=== PATIENT | female | born 1950 | race Caucasian/White ===

== ENCOUNTER 2016-06-14 18:24 | Inpatient (IN) | payer MEDICARE, OTHER ==
[~2016-06-14] VITALS: Ht 156.2 cm; Wt 88.2 kg
[~2016-06-14 18:24] MED LIST: AMLO5TAB4 PO; ATOR40TA PO; CALC-77 PO; CARV6.252 PO; CEPH-264 PO; CIPR500T94 PO; DARB100D SQ; DICL150D5 TP; FENO145T PO; FERR325T58 PO; FOLI1TAB16 PO; FURO80TA72 PO; GLIM4TAB PO; INSU100C4 SQ; INSU100I13 SQ; INSU100I17 SQ; LEVO112T2 PO; LEVO750T31 PO; LOSA50TA6 PO; METO2.5T5 PO; NOVOLOG SS; ONDA4TAB7 PO; ROPI1TAB PO; ROPI2TAB3 PO; SODI650T PO; TRIA15CR3 TP
[2016-06-14 19:55] LABS: BASO % 1 % (0-3); EOS % 4 % (0-3); HEMATOCRIT 35.2 % (36.0-47.0); HEMOGLOBIN 11.4 g/dL (12.0-15.5); LYMPH # 1.1 x10^3/uL (1.0-4.8); LYMPH % 36 % (24-48); MEAN CORPUSCULAR HEMOGLOBIN 29 pg (25-35); MEAN CORPUSCULAR HGB CONC 32 g/dL (31-37); MEAN CORPUSCULAR VOLUME 90 fL (79-100); MONO % 12 % (0-9); NEUT % 47 % (31-73); PLATELET COUNT 147 x10^3/uL (140-400); RED CELL DISTRIBUTION WIDTH 15.1 % (11.5-14.5); WHITE BLOOD COUNT 3.1 x10^3/uL (4.0-11.0)
[2016-06-14] MEDS ORDERED: methylPREDNISolone SOD SUCC PF 125 MG/2 ML VIAL. IV ONE (20:00)
[2016-06-14] MEDS ORDERED: IPRATRPIUM/ALBUTEROL 0.5/2.5MG 3 ML NEBU. NEB ONE (20:00)
[2016-06-14] MEDS ORDERED: hydrALAZINE 20 MG/ML VIAL. IVP ONE (20:00)
[2016-06-14] MEDS ORDERED: IV NORMAL SALINE 1000ML BAG 1,000 ML IV ONE (20:00)
[2016-06-14] MEDS ORDERED: ONDANSETRON PF 4 MG/2 ML VIAL. IV ONE (20:00)
[2016-06-14 20:11] LABS: CALCIUM 8.7 mg/dL (8.5-10.1); CREATININE 5.2 mg/dL (0.6-1.0); GFR 8.3; POTASSIUM 4.3 mmol/L (3.5-5.1)
[2016-06-14 20:17] LABS: ALBUMIN 3.1 g/dL (3.4-5.0); ALBUMIN/GLOBULIN RATIO 0.8 (1.0-1.7); TOTAL BILIRUBIN 0.4 mg/dL (0.2-1.0)
--- NOTE | 2016-06-14 22:07 | PHYS DOC ---
Past Medical History Past Medical History: COPD, Diabetes-Type II, High Cholesterol, Hypertension, Renal Failure Additional Past Medical Histor: hypoxia Past Surgical History: Other Additional Past Surgical Histo: dialysis shunt - left f.arm Alcohol Use: None Drug Use: None Adult General Chief Complaint Chief Complaint: NAUSEA/VOMITING/DIARRHA HPI HPI 66-year-old female with multiple medical problems including end-stage renal disease on dialysis presents stating she is been progressively short of breath over the last several days. She states she just felt terrible today and couldn' t make it to her dialysis treatment. She denies any fever chills or sweats. She states she is coughing and complains of orthopnea but she denies any hemoptysis or colored sputum. She does complain of some chest pain with her cough. [] Review of Systems Review of Systems Constitutional: Denies fever or chills [] Eyes: Denies change in visual acuity, redness, or eye pain [] HENT: Denies nasal congestion or sore throat [] Respiratory: Per history of present illness [] Cardiovascular: No additional information not addressed in HPI [] GI: Denies abdominal pain, nausea, vomiting, bloody stools or diarrhea [] : Denies dysuria or hematuria [] Musculoskeletal: Denies back pain or joint pain [] Integument: Denies rash or skin lesions [] Neurologic: Denies headache, focal weakness or sensory changes [] Endocrine: Denies polyuria or polydipsia [] Current Medications Current Medications Current Medications Medications (Trade) Dose Ordered Sig/Jordan Start Time Stop Time Status Last Admin Dose Admin Albuterol/ Ipratropium (Duoneb) 6 ml 1X ONCE 06/14/16 20:00 06/14/16 20:01 DC 06/14/16 19:58 6 ML Amlodipine Besylate (Norvasc) 10 mg DAILY 06/15/16 09:00 UNV Carvedilol (Coreg) 6.25 mg BID 06/15/16 09:00 UNV Furosemide (Lasix) 80 mg 1X ONCE 06/14/16 22:30 06/14/16 22:31 Hydralazine HCl (Apresoline) 10 mg 1X ONCE 06/14/16 20:00 06/14/16 20:01 DC 06/14/16 20:06 10 MG Methylprednisolone Sodium Succinate (Solu-Medrol 125mg Vial) 125 mg 1X ONCE 06/14/16 20:00 06/14/16 20:01 DC 06/14/16 20:06 125 MG Ondansetron HCl (Zofran) 4 mg PRN Q8HRS PRN 06/14/16 22:15 06/15/16 22:14 UNV Ondansetron HCl 4 mg 4 mg 1X ONCE 06/14/16 20:00 06/14/16 20:01 DC 06/14/16 20:05 4 MG Sodium Chloride (Iv Sodium Chloride 0.9% 1000ml Bag) 1,000 ml @ 1,000 mls/hr 1X ONCE 06/14/16 20:00 06/14/16 20:59 DC 06/14/16 20:05 1,000 MLS/HR Allergies Allergies Allergies Coded Allergies Type Severity Reaction Last Updated Verified No Known Drug Allergies 09/07/15 No Physical Exam Physical Exam Constitutional: Well developed, well nourished, no acute distress, non-toxic appearance. [] HENT: Normocephalic, atraumatic, bilateral external ears normal, oropharynx moist, no oral exudates, nose normal. [] Eyes: PERRLA, EOMI, conjunctiva normal, no discharge. [] Neck: Normal range of motion, no tenderness, supple, no stridor. [] Cardiovascular:Heart rate regular rhythm, no murmur [] Lungs & Thorax: Bilateral breath sounds clear to auscultation [] Abdomen: Bowel sounds normal, soft, no tenderness, no masses, no pulsatile masses. [] Skin: Warm, dry, no erythema, no rash. [] Back: No tenderness, no CVA tenderness. [] Extremities: No tenderness, no cyanosis, no clubbing, ROM intact, no edema. [] Neurologic: Alert and oriented X 3, normal motor function, normal sensory function, no focal deficits noted. [] Psychologic: Affect normal, judgement normal, mood normal. [] Current Patient Data Vital Signs Vital Signs Date Time Temp Pulse Resp B/P Pulse Ox O2 Delivery O2 Flow Rate FiO2 06/14/16 20:13 Nasal Cannula 3.0 06/14/16 20:12 84 18 201/88 96 06/14/16 19:20 98.5 98.5 Lab Values Laboratory Tests Test 1/24/17 19:15 White Blood Count 3.1x10^3/uL (4.0-11.0) L Red Blood Count 3.90x10^6/uL (3.50-5.40) Hemoglobin 11.4g/dL (12.0-15.5) L Hematocrit 35.2% (36.0-47.0) L Mean Corpuscular Volume 90fL (79-100) Mean Corpuscular Hemoglobin 29pg (25-35) Mean Corpuscular Hemoglobin Concent 32g/dL (31-37) Red Cell Distribution Width 15.1% (11.5-14.5) H Platelet Count 147x10^3/uL (140-400) Neutrophils (%) (Auto) 47% (31-73) Lymphocytes (%) (Auto) 36% (24-48) Monocytes (%) (Auto) 12% (0-9) H Eosinophils (%) (Auto) 4% (0-3) H Basophils (%) (Auto) 1% (0-3) Neutrophils # (Auto) 1.5x10^3uL (1.8-7.7) L Lymphocytes # (Auto) 1.1x10^3/uL (1.0-4.8) Monocytes # (Auto) 0.4x10^3/uL (0.0-1.1) Eosinophils # (Auto) 0.1x10^3/uL (0.0-0.7) Basophils # (Auto) 0.0x10^3/uL (0.0-0.2) Sodium Level 139mmol/L (136-145) Potassium Level 4.3mmol/L (3.5-5.1) Chloride Level 101mmol/L (98-107) Carbon Dioxide Level 29mmol/L (21-32) Anion Gap 9 (6-14) Blood Urea Nitrogen 43mg/dL (7-20) H Creatinine 5.2mg/dL (0.6-1.0) H Estimated GFR (Cockcroft-Gault) 8.3 BUN/Creatinine Ratio 8 (6-20) Glucose Level 146mg/dL (70-99) H Calcium Level 8.7mg/dL (8.5-10.1) Total Bilirubin 0.4mg/dL (0.2-1.0) Aspartate Amino Transferase (AST) 23U/L (15-37) Alanine Aminotransferase (ALT) 26U/L (14-59) Alkaline Phosphatase 48U/L (46-116) Troponin I Quantitative 0.047ng/mL (0.000-0.055) AZ-Ety-Q-Type Natriuretic Peptide 90934tx/mL (0-124) H Total Protein 7.0g/dL (6.4-8.2) Albumin 3.1g/dL (3.4-5.0) L Albumin/Globulin Ratio 0.8 (1.0-1.7) L Laboratory Tests 06/14/16 19:15 Laboratory Tests 06/14/16 19:15 EKG EKG [EKG: Normal sinus rhythm rate of [address]-T changes] Radiology/Procedures Radiology/Procedures [] Impressions: Chest x-ray: Cardiomegaly and vascular congestion consistent with congestive heart failure as interpreted by me Course & Med Decision Making Course & Med Decision Making Pertinent Labs and Imaging studies reviewed. (See chart for details) [ED course: Evaluation reveals 66-year-old female on dialysis who short of breath. Her chest x-ray is consistent with congestive heart failure she was given 80 mg of Lasix during her stay in the department however her oxygen saturation was in the 70s and less she was on a Ventimask. After placement of the Ventimask she had an O2 saturation of 95%. I spoke with our pit crew support worker who is going to have a dialysis nurse come in and dialyze the patient this evening. CRITICAL CARE time was 30 minutes - time exclusive of any procedures performed. Care included medical management, x-ray/lab interpretation, discussions with the patient and their family as well as appropriate medical consultants.] Dragon Disclaimer Dragon Disclaimer This electronic medical record was generated, in whole or in part, using a voice recognition dictation system. Departure Departure Impression: Primary Impression: Congestive heart failure Additional Impression: Fluid overload Disposition: 09 ADMITTED INPATIENT Condition: GUARDED Referrals: NO PCP (PCP) Problem Qualifiers Primary Impression: Congestive heart failure Congestive heart failure type: unspecified congestive heart failure type Congestive heart failure chronicity: unspecified congestive heart failure chronicity Qualified Code: I50.9 - Heart failure, unspecified Additional Impression: Fluid overload Hypervolemia type: unspecified Qualified Code: E87.70 - Fluid overload, unspecified CLARE LOZA DO Jun 14, 2016 22:08
[2016-06-14] MEDS ORDERED: ONDANSETRON PF 4 MG/2 ML VIAL. IV PRN (22:15)
[2016-06-14] MEDS: AMLODIPINE BESYLATE 5 MG TABLET PO SCH (22:30)
[2016-06-14] MEDS ORDERED: FUROSEMIDE 40 MG/4 ML VIAL IVP ONE (22:30)
[2016-06-14] MEDS: CARVEDILOL 6.25 MG TABLET PO SCH (22:37)
--- NOTE | 2016-06-14 22:53 | ACF ---
Admission Forms Criteria HEART FAILURE Clinical Indications for Admission to Inpatient Care (Place 'X' for any and all applicable criteria): Admission is indicated by ANY ONE of the following(1)(2)(3)(4): [ ]I. Severe electrolyte abnormalities requiring inpatient care(9) [ ]II. Hemodynamic instability [ ]III. Anasarca [ ]IV. Acute cardiac ischemia causing or associated with failure (Also use Angina or Myocardial Infarction as appropriate) [ ]V. Cardiac arrhythmias of immediate concern [ ]. Precipitating cause for acute decompensation (eg, pneumonia, pulmonary embolism) requires inpatient care [ ]VII. Pulmonary edema that is very severe (eg, mechanical ventilation needed, imminent or likely, need for 100% oxygen to keep oxygen saturation above 90%) [ ]VIII. Inpatient admission required rather than observation care (Also use Heart Failure: Observation Care as appropriate) because of ANY ONE of the following: [ ]a) Pulmonary edema that is severe or worsening as indicated by ALL of the following: [ ]i) New need for oxygen therapy to keep oxygen saturation above 90% (or increased FiO2 need from baseline) [ ]ii) Has not improved sufficiently with emergency department or observation care IV diuretics or other heart failure treatments[C] [ ]b) Cognitive impairment that is severe or persistent [ ]c) Increased creatinine (new on laboratory test) with reduction of more than 50% in estimated glomerular filtration rate from baseline. [ ]d) Acute renal insufficiency (progressively (ongoing) rising creatinine (known from past laboratory test) with reduction of more than 25% in estimated glomerular filtration rate from baseline) [ ]e) Acute peripheral ischemia (eg, pulseless, cool, mottled, or cyanotic extremity) [ ]f) Acute renal failure [ ]g) Supplemental O2 or respiratory treatment for >24 hr that are performable only in acute inpatient setting [ ]h) Pulmonary artery catheter monitoring [ ]i) Other condition, treatment or monitoring requiring inpatient admission [X]IX. Contraindications and/or Inappropriate clinical situations for Observational Care in patients with Heart Failure, when ANY ONE of the following is required: [ ]a) Patient with High risk of cardiac embolism (e.g, patients with previous cardiac embolism, LVEF < 40%, age >75 and patients with prosthetic valve) 18 [ ]b) Patient with Moderate risk including DM patient, CAD and patient aged 65-75 [ ]c) Patient with any change in cardiac biomarker especially troponin should be managed as high risk in an inpatient setting 19 [ ]d) Physician judgement irrespective of ECG and other diagnostic findings 20 [ ]e) Patients with hyponatremia have high risk for mortality and require more extensive care and length of stay 21 [X]f) Need for large volume diuresis 21 [ ]g) Presence of renal insufficiency or hypotension limiting speed of diuresis 21 [ ]h) Acute cardiac Ischemia in the elderly 21 [ ]i) Patients with a 30 day risk of mortality based on a multidimensional prognostic index (MPI) [J,]21 [ ]X. General contraindications and/or Inappropriate clinical situations for Observational Care in patients with Heart Failure, when ANY ONE of the following is required: [ ]a) Prediction of prolongation of LOS based on ANY ONE of the following may be considered as a contraindication for observational care 2, 3, 4, 5, 6, 7, 8 , 9, 10, 11 [ ]i) Age > 65 yrs. [ ]ii) Patient arriving by ambulance [ ]iii) Patient with high acuity [ ]iv) Patient requiring vital sign monitoring [ ]v) Patient on IV medication [ ]b) Systolic blood pressures 180mmHg 3,12 [ ]c) Patient with altered mental status including delirium and other alteration of consciousness, (3) [ ]d) Patient whose discharge disposition will be to a group home home or rehabilitation home should not be managed in Emergency Department Observation Unit. CMS rule requires 3 days hospital stay before such placement.3,13 [ ]e) Patient with failure to thrive due to broad array of etiologies 3,16,17 [ ]f) Inability to ambulate 3,14 Extended stay beyond goal length of stay may be needed for(1)(3)(21)(25): [ ]a) Cardiac ischemia, confirmed or suspected as precipitant [ ]b) Cardiogenic shock or refractory pulmonary edema [ ]c) Acute kidney injury or renal failure [ ]d) Respiratory failure (eg, need for noninvasive or invasive mechanical ventilation) (23) [ ]e) Concomitant pneumonia or significant electrolyte abnormality (eg, severe hyponatremia) [ ]f) Newly diagnosed (new onset) atrial fibrillation [ ]g) Stage IV chronic kidney disease (estimated glomerular filtration rate of less than 30 mL/min/1.73m2 (0.50 mL/sec/1.73m2), and not previously on chronic dialysis The original [facility] content created by [facility] has been revised. The portions of the content which have been revised are identified through the use of italic text or in bold, and [facility] has neither reviewed nor approved the modified material. All other unmodified content is copyright [facility]. Please see references footnoted in the original [facility] edition 2016 Admission Criteria Met?: Yes BAO LEE. Jun 14, 2016 22:53
[2016-06-14 23:16] VITALS: BP 174/79
[2016-06-15 02:10] VITALS: BP 158/72
[2016-06-15 04:02] LABS: BASO % 1 % (0-3); EOS % 0 % (0-3); HEMATOCRIT 33.9 % (36.0-47.0); HEMOGLOBIN 11.2 g/dL (12.0-15.5); LYMPH # 0.3 x10^3/uL (1.0-4.8); LYMPH % 19 % (24-48); MEAN CORPUSCULAR HEMOGLOBIN 30 pg (25-35); MEAN CORPUSCULAR HGB CONC 33 g/dL (31-37); MEAN CORPUSCULAR VOLUME 89 fL (79-100); MONO % 4 % (0-9); NEUT % 77 % (31-73); PLATELET COUNT 120 x10^3/uL (140-400); RED BLOOD COUNT 3.79 x10^6/uL (3.50-5.40); RED CELL DISTRIBUTION WIDTH 15.4 % (11.5-14.5)
[2016-06-15 04:10] LABS: WHITE BLOOD COUNT 1.5 x10^3/uL (4.0-11.0)
[2016-06-15 04:14] LABS: CALCIUM 8.3 mg/dL (8.5-10.1); CREATININE 3.4 mg/dL (0.6-1.0); GFR 13.5; POTASSIUM 4.3 mmol/L (3.5-5.1)
[2016-06-15 06:34] LABS: PLT ESTIMATE ADEQUATE (ADEQUATE)
--- NOTE | 2016-06-15 06:52 | EKG ---
[facility] [address] [place] [id number] Test Date: 2016-06-14 Test Time: 19:15:31 Pat Name: TJ HOOKS Department: Room: 208 1 Gender: F Control Specialist: : [id number] Requested By: CLARE LOZA Order Number: [id number] Reading MD: Hansel Sanchez Measurements Intervals [place]is Rate: 83 P: 90 DC: 154 QRS: 82 QRSD: 88 T: 3 QT: 348 QTc: 409 Interpretive Statements SINUS RHYTHM T ABNORMALITY IN INFERIOR LEADS ABNORMAL ECG Electronically Signed On 06-15-2016 15:11:54 CYTOGENETICIST by Hansel Sanchez
[2016-06-15 07:46] VITALS: BP 168/78
--- NOTE | 2016-06-15 08:36 | RAD ---
Indication: Shortness of air for one week. Time of exam 2034 hours. Comparison is made with prior study 09/25/2015. The heart is enlarged but stable. Linear atelectasis right upper lobe is unchanged. Congestive changes have developed since prior exam. No effusion is seen. There is no pneumothorax. Impression: Development of mild congestive changes when compared with exam from 09/25/2015.
[2016-06-15] MEDS ORDERED: DEXTROSE 50% 25 GM / 50ML DISP.SYRIN. IV PRN (09:15)
[2016-06-15] MEDS: CARVEDILOL 6.25 MG TABLET PO SCH ×2 (09:39→18:27)
[2016-06-15] MEDS: AMLODIPINE BESYLATE 5 MG TABLET PO SCH (09:39)
--- NOTE | 2016-06-15 09:40 | PDOC1 ---
History and Physical Date of Admission Date of Admission DATE: 06/15/16 TIME: 09:34 Identification/Chief Complaint Chief Complaint short of breath History of Present Illness History of Present Illness Ms. Diego, is a 66-year-old female with multiple medical problems, admitted overnight for dyspnea, weakness. Her dyspnea had worsened over days, she had only missed her last HD because she felt poorly Ran 2 hours on HD last night, and feels much better today. She states she just felt terrible yesterday and couldn't make it to her dialysis treatment. THis AM she feels more like her normal self, would like to run HD again today if possible + coughing, + orthopnea, no chest pain Past Medical History Past Medical History end-stage renal disease on dialysis Cardiovascular: CHF, HTN, Hyperlipidemia Pulmonary: Asthma, COPD, Other CENTRAL NERVOUS SYSTEM: Other GI: No pertinent hx Heme/Onc: No pertinent hx Psych: Depression Musculoskeletal: Other Rheumatologic: No pertinent hx Infectious disease: No pertinent hx Renal/: Acute renal failure Endocrine: Diabetes, Hypothyroidism, Other Past Surgical History Past Surgical History: Cholecystectomy, Cataract Removal, Tonsillectomy Family History Family History: No Significant, Diabetes, Family History Unknown Social History Smoke: No ALCOHOL: none Drugs: None Current Problem List Problem List Problems Medical Problems: (1) CHF (congestive heart failure) Status: Acute (2) Congestive heart failure Status: Acute (3) Fluid overload Status: Acute Problems: Current Medications Current Medications Current Medications Albuterol/ Ipratropium (Duoneb) 6 ml 1X ONCE NEB Last administered on 19:58; Start 06/14/16 at 20:00; Stop 06/14/16 at 20:01; Status DC Methylprednisolone Sodium Succinate (Solu-Medrol 125mg Vial) 125 mg 1X ONCE IV Last administered on 06/14/16 20:06; Start 06/14/16 at 20:00; Stop 06/14/16 at 20:01; Status DC Ondansetron HCl 4 mg 4 mg 1X ONCE IV Last administered on 06/14/16 20:05; Start 06/14/16 at 20:00; Stop 06/14/16 at 20:01; Status DC Sodium Chloride (Iv Sodium Chloride 0.9% 1000ml Bag) 1,000 ml @ 1,000 mls/hr 1X ONCE IV Last administered on 06/14/16 20:05; Start 06/14/16 at 20:00; Stop 06/14/16 at 20:59; Status DC Hydralazine HCl (Apresoline) 10 mg 1X ONCE IVP Last administered on 06/14/16 20:06; Start 06/14/16 at 20:00; Stop 06/14/16 at 20:01; Status DC Furosemide (Lasix) 80 mg 1X ONCE IVP Last administered on 06/14/16 22:31; Start 06/14/16 at 22:30; Stop 06/14/16 at 22:31; Status DC Ondansetron HCl (Zofran) 4 mg PRN Q8HRS PRN IV NAUSEA/VOMITING; Start 06/14/16 at 22:15; Stop 06/15/16 at 22:14 Amlodipine Besylate (Norvasc) 10 mg DAILY PO ; Start 06/14/16 at 22:30 Carvedilol (Coreg) 6.25 mg BIDWMEALS PO Last administered on 06/14/16 22:37; Start 06/14/16 at 22:30 Insulin Aspart (Novolog) 0-7 UNITS TIDWMEALS SQ ; Start 06/15/16 at 12:00; Stop 06/15/16 at 12:00; Status DC Dextrose 12.5 gm PRN Q15MIN PRN IV SEE COMMENTS; Start 06/15/16 at 09:15 Insulin Aspart (Novolog) 0-7 UNITS QID SQ ; Start 06/15/16 at 13:00 Active Scripts Active Reported Norvasc (Amlodipine Besylate) 5 Mg Tablet 10 Mg PO DAILY Allergies Allergies: Coded Allergies: No Known Drug Allergies (Unverified , 09/07/15) ROS General: YES: Fatigue, Malaise, No: Appetite, Chills, Night Sweats, Other PSYCHOLOGICAL ROS: No: Anxiety, Behavioral Disorder, Concentration difficultie , Decreased libido, Depression, Disorientation, Hallucinations, Hostility, Irritablity, Memory difficulties, Mood Swings, Obsessive thoughts, Other, Physical abuse, Sexual abuse, Sleep disturbances, Suicidal ideation Eyes: No Blurry vision, No Decreased vision, No Double vision, No Dry eyes, No Excessive tearing, No Eye Pain, No Itchy Eyes, No Loss of vision, No Other, No Photophobia, No Scotomata, No Uses contacts, No Uses glasses HEENT: No: Epistaxis, Heacaches, Hearing change, Nasal congestion, Nasal discharge, Oral lesions, Other, Sinus pain, Sneezing, Snoring, Sore Throat, Tinnitus, Vertigo, Visual Changes, Vocal changes Respiratory: YES: Cough, Orthopnea, SOB with excertion, No: Hemoptysis, Other, Pleuritic Pain, Shortness of breath, Sputum Changes, Stridor, Tachypnea, Wheezing Cardiovascular: No Chest Pain, No Edema, No Lt Headedness, No Orthopnea, No Other, No Palpitations, No Paroxysmal Noc. Dyspnea Gastrointestinal: No Abdominal Pain, No Constipation, No Diarrhea, No Hematochezia, No Melena, No Nausea, No Other, No Vomiting Genitourinary: No , No , No , No , No , No , No , No Discharge, No Dysuria, No Flank Pain, No Frequency, No Hematuria, No Incontinence, No Other, No Pain, No Retention, No Urgency Musculoskeletal: Yes Gait Disturbance, Yes Joint Pain, Yes Joint Stiffness, No Joint Swelling, No Muscle Pain, No Muscular Weakness, No Other, No Pain In :, No Swelling In: Neurological: No Behavorial Changes, No Bowel/Bladder ControlChng, No Confusion , No Dizziness, No Gait Disturbance, No Headaches, No Impaired Coord/balance, No Memory Loss, No Numbness/Tingling, No Other, No Seizures, No Speech Problems , No Tremors, No Visual Changes, No Weakness Skin: No Acne, No Dry Skin, No Eczema, No Hair Changes, No Lumps, No Mole Changes, No Mottling, No Nail Changes, No Other, No Pruritus, No Rash, No Skin Lesion Changes Physical Exam General: Alert, Oriented X3, Cooperative, No acute distress HEENT: Atraumatic, PERRLA Lungs: Clear to auscultation, Normal air movement Heart: S1S2, murmurs Abdomen: Normal bowel sounds, Soft Extremities: No cyanosis Skin: No breakdown Neuro: Normal gait, Normal speech Psych/Mental Status: Mental status NL Vitals Vitals Vital Signs Date Time Temp Pulse Resp B/P Pulse Ox O2 Delivery O2 Flow Rate FiO2 06/15/16 08:03 Nasal Cannula 2.0 06/15/16 07:46 97.9 76 20 168/78 93 97.9 Labs Labs Laboratory Tests Test 1/24/17 19:15 06/15/16 03:32 06/15/16 08:05 White Blood Count 3.1x10^3/uL (4.0-11.0) 1.5x10^3/uL (4.0-11.0) Red Blood Count 3.90x10^6/uL (3.50-5.40) 3.79x10^6/uL (3.50-5.40) Hemoglobin 11.4g/dL (12.0-15.5) 11.2g/dL (12.0-15.5) Hematocrit 35.2% (36.0-47.0) 33.9% (36.0-47.0) Mean Corpuscular Volume 90fL (79-100) 89fL (79-100) Mean Corpuscular Hemoglobin 29pg (25-35) 30pg (25-35) Mean Corpuscular Hemoglobin Concent 32g/dL (31-37) 33g/dL (31-37) Red Cell Distribution Width 15.1% (11.5-14.5) 15.4% (11.5-14.5) Platelet Count 147x10^3/uL (140-400) 120x10^3/uL (140-400) Neutrophils (%) (Auto) 47% (31-73) 77% (31-73) Lymphocytes (%) (Auto) 36% (24-48) 19% (24-48) Monocytes (%) (Auto) 12% (0-9) 4% (0-9) Eosinophils (%) (Auto) 4% (0-3) 0% (0-3) Basophils (%) (Auto) 1% (0-3) 1% (0-3) Neutrophils # (Auto) 1.5x10^3uL (1.8-7.7) 1.2x10^3uL (1.8-7.7) Lymphocytes # (Auto) 1.1x10^3/uL (1.0-4.8) 0.3x10^3/uL (1.0-4.8) Monocytes # (Auto) 0.4x10^3/uL (0.0-1.1) 0.1x10^3/uL (0.0-1.1) Eosinophils # (Auto) 0.1x10^3/uL (0.0-0.7) 0.0x10^3/uL (0.0-0.7) Basophils # (Auto) 0.0x10^3/uL (0.0-0.2) 0.0x10^3/uL (0.0-0.2) Sodium Level 139mmol/L (136-145) 139mmol/L (136-145) Potassium Level 4.3mmol/L (3.5-5.1) 4.3mmol/L (3.5-5.1) Chloride Level 101mmol/L (98-107) 102mmol/L (98-107) Carbon Dioxide Level 29mmol/L (21-32) 27mmol/L (21-32) Anion Gap 9 (6-14) 10 (6-14) Blood Urea Nitrogen 43mg/dL (7-20) 26mg/dL (7-20) Creatinine 5.2mg/dL (0.6-1.0) 3.4mg/dL (0.6-1.0) Estimated GFR (Cockcroft-Gault) 8.3 13.5 BUN/Creatinine Ratio 8 (6-20) Glucose Level 146mg/dL (70-99) 232mg/dL (70-99) Calcium Level 8.7mg/dL (8.5-10.1) 8.3mg/dL (8.5-10.1) Total Bilirubin 0.4mg/dL (0.2-1.0) Aspartate Amino Transf (AST/SGOT) 23U/L (15-37) Alanine Aminotransferase (ALT/SGPT) 26U/L (14-59) Alkaline Phosphatase 48U/L (46-116) Troponin I Quantitative 0.047ng/mL (0.000-0.055) UI-Qfl-R-Type Natriuretic Peptide 94360jk/mL (0-124) Total Protein 7.0g/dL (6.4-8.2) Albumin 3.1g/dL (3.4-5.0) Albumin/Globulin Ratio 0.8 (1.0-1.7) Segmented Neutrophils % 80% (35-66) Band Neutrophils % 4% (0-9) Lymphocytes % 14% (24-48) Monocytes % 2% (0-10) Platelet Estimate Adequate (ADEQUATE) Glucose (Fingerstick) 275mg/dL (70-99) Laboratory Tests Test 06/14/16 19:15 06/15/16 03:32 06/15/16 08:05 White Blood Count 3.1x10^3/uL (4.0-11.0) 1.5x10^3/uL (4.0-11.0) Red Blood Count 3.90x10^6/uL (3.50-5.40) 3.79x10^6/uL (3.50-5.40) Hemoglobin 11.4g/dL (12.0-15.5) 11.2g/dL (12.0-15.5) Hematocrit 35.2% (36.0-47.0) 33.9% (36.0-47.0) Mean Corpuscular Volume 90fL (79-100) 89fL (79-100) Mean Corpuscular Hemoglobin 29pg (25-35) 30pg (25-35) Mean Corpuscular Hemoglobin Concent 32g/dL (31-37) 33g/dL (31-37) Red Cell Distribution Width 15.1% (11.5-14.5) 15.4% (11.5-14.5) Platelet Count 147x10^3/uL (140-400) 120x10^3/uL (140-400) Neutrophils (%) (Auto) 47% (31-73) 77% (31-73) Lymphocytes (%) (Auto) 36% (24-48) 19% (24-48) Monocytes (%) (Auto) 12% (0-9) 4% (0-9) Eosinophils (%) (Auto) 4% (0-3) 0% (0-3) Basophils (%) (Auto) 1% (0-3) 1% (0-3) Neutrophils # (Auto) 1.5x10^3uL (1.8-7.7) 1.2x10^3uL (1.8-7.7) Lymphocytes # (Auto) 1.1x10^3/uL (1.0-4.8) 0.3x10^3/uL (1.0-4.8) Monocytes # (Auto) 0.4x10^3/uL (0.0-1.1) 0.1x10^3/uL (0.0-1.1) Eosinophils # (Auto) 0.1x10^3/uL (0.0-0.7) 0.0x10^3/uL (0.0-0.7) Basophils # (Auto) 0.0x10^3/uL (0.0-0.2) 0.0x10^3/uL (0.0-0.2) Sodium Level 139mmol/L (136-145) 139mmol/L (136-145) Potassium Level 4.3mmol/L (3.5-5.1) 4.3mmol/L (3.5-5.1) Chloride Level 101mmol/L (98-107) 102mmol/L (98-107) Carbon Dioxide Level 29mmol/L (21-32) 27mmol/L (21-32) Anion Gap 9 (6-14) 10 (6-14) Blood Urea Nitrogen 43mg/dL (7-20) 26mg/dL (7-20) Creatinine 5.2mg/dL (0.6-1.0) 3.4mg/dL (0.6-1.0) Estimated GFR (Cockcroft-Gault) 8.3 13.5 BUN/Creatinine Ratio 8 (6-20) Glucose Level 146mg/dL (70-99) 232mg/dL (70-99) Calcium Level 8.7mg/dL (8.5-10.1) 8.3mg/dL (8.5-10.1) Total Bilirubin 0.4mg/dL (0.2-1.0) Aspartate Amino Transf (AST/SGOT) 23U/L (15-37) Alanine Aminotransferase (ALT/SGPT) 26U/L (14-59) Alkaline Phosphatase 48U/L (46-116) Troponin I Quantitative 0.047ng/mL (0.000-0.055) EJ-Lof-Q-Type Natriuretic Peptide 89220ay/mL (0-124) Total Protein 7.0g/dL (6.4-8.2) Albumin 3.1g/dL (3.4-5.0) Albumin/Globulin Ratio 0.8 (1.0-1.7) Segmented Neutrophils % 80% (35-66) Band Neutrophils % 4% (0-9) Lymphocytes % 14% (24-48) Monocytes % 2% (0-10) Platelet Estimate Adequate (ADEQUATE) Glucose (Fingerstick) 275mg/dL (70-99) VTE Prophylaxis Ordered VTE Prophylaxis Devices: Yes VTE Pharmacological Prophylaxi: Yes Assessment/Plan Assessment/Plan ESRD, on HD, fluid overload, causing acute diastolic CHF Htn DM2, poor control, she stopped taking med chronic hypoxic lung failure Neurotropenia, she reports chronic, has seen Dr. Falcon previously noncompliance, has stopped seeing Dr. Burr, had a disagreement with database support obesity, BMI 36 uses a walker at baseline CORAZON LIRIANO MD Jun 15, 2016 09:39
--- NOTE | 2016-06-15 10:37 | PDOC2 ---
CONSULT Date of Consult Date of Consult DATE: 06/15/16 TIME: 10:33 Reason for Consult Reason for Consult: ESRD Referring Physician Referring Physician: ANNITA Identification/Chief Complaint Chief Complaint SOB Source Source: Chart review, Patient History of Present Illness Reason for Visit: THIS IS A 66 YR OLD ADMITTED WITH SOB AND CHF. SHE HAS ESRD AND IS ON HD ON TTS. SHE MISSED HER TX YESTERDAY AND PRESENTED TO THE ER LAST NIGHT AND SHE WAS HYPOXIC NEEDING SUPPLEMENTAL O2. LABS ARE C/W ESRD. SHE IS ALSO NOTED TO HAVE NEUTROPENIA. STATES SHE HAS HAD SOME PROGRESSIVE SOB SINCE MONDAY Past Medical History Cardiovascular: CHF, HTN, Hyperlipidemia Pulmonary: Asthma, COPD, Other CENTRAL NERVOUS SYSTEM: Other GI: No pertinent hx Heme/Onc: No pertinent hx Psych: Depression Musculoskeletal: Other Rheumatologic: No pertinent hx Infectious disease: No pertinent hx Renal/: Acute renal failure Endocrine: Diabetes, Hypothyroidism, Other Past Surgical History Past Surgical History: Cholecystectomy, Cataract Removal, Tonsillectomy Family History Family History: No Significant, Diabetes, Family History Unknown Social History No ALCOHOL: none Drugs: None Lives: with Family Current Problem List Problem List Problems Medical Problems: (1) CHF (congestive heart failure) Status: Acute (2) Congestive heart failure Status: Acute (3) Fluid overload Status: Acute Current Medications Current Medications Current Medications Albuterol/ Ipratropium (Duoneb) 6 ml 1X ONCE NEB Last administered on 19:58; Start 06/14/16 at 20:00; Stop 06/14/16 at 20:01; Status DC Methylprednisolone Sodium Succinate (Solu-Medrol 125mg Vial) 125 mg 1X ONCE IV Last administered on 06/14/16 20:06; Start 06/14/16 at 20:00; Stop 06/14/16 at 20:01; Status DC Ondansetron HCl 4 mg 4 mg 1X ONCE IV Last administered on 06/14/16 20:05; Start 06/14/16 at 20:00; Stop 06/14/16 at 20:01; Status DC Sodium Chloride (Iv Sodium Chloride 0.9% 1000ml Bag) 1,000 ml @ 1,000 mls/hr 1X ONCE IV Last administered on 06/14/16 20:05; Start 06/14/16 at 20:00; Stop 06/14/16 at 20:59; Status DC Hydralazine HCl (Apresoline) 10 mg 1X ONCE IVP Last administered on 06/14/16 20:06; Start 06/14/16 at 20:00; Stop 06/14/16 at 20:01; Status DC Furosemide (Lasix) 80 mg 1X ONCE IVP Last administered on 06/14/16 22:31; Start 06/14/16 at 22:30; Stop 06/14/16 at 22:31; Status DC Ondansetron HCl (Zofran) 4 mg PRN Q8HRS PRN IV NAUSEA/VOMITING; Start 06/14/16 at 22:15; Stop 06/15/16 at 22:14 Amlodipine Besylate (Norvasc) 10 mg DAILY PO Last administered on 06/15/16 09: 39; Start 06/14/16 at 22:30 Carvedilol (Coreg) 6.25 mg BIDWMEALS PO Last administered on 06/15/16 09:39; Start 06/14/16 at 22:30 Insulin Aspart (Novolog) 0-7 UNITS TIDWMEALS SQ ; Start 06/15/16 at 12:00; Stop 06/15/16 at 12:00; Status DC Dextrose 12.5 gm PRN Q15MIN PRN IV SEE COMMENTS; Start 06/15/16 at 09:15 Insulin Aspart (Novolog) 0-7 UNITS QID SQ ; Start 06/15/16 at 13:00 Active Scripts Active Reported Norvasc (Amlodipine Besylate) 5 Mg Tablet 10 Mg PO DAILY Allergies Allergies: Coded Allergies: No Known Drug Allergies (Unverified , 09/07/15) ROS General: YES: Appetite, Fatigue, Malaise PSYCHOLOGICAL ROS: YES: Anxiety Eyes: Yes Decreased vision HEENT: YES: Heacaches Respiratory: YES: Cough, Orthopnea, Shortness of breath Cardiovascular: yes Orthopnea Gastrointestinal: Yes Constipation Genitourinary: YES Other (OLIGURIA) Musculoskeletal: Yes Muscular Weakness Neurological: Yes Weakness Skin: Yes Dry Skin Physical Exam General: Alert, Oriented X3, Cooperative, No acute distress HEENT: Atraumatic, PERRLA Lungs: Other (BASILAR RALES) Heart: Regular rate, Normal S1 Abdomen: Normal bowel sounds, Soft, No tenderness Extremities: No clubbing Skin: No rashes Neuro: Normal speech, Cranial nerves 3-12 NL Psych/Mental Status: Mental status NL, Mood NL MUSCULOSKELETAL: No deformity, No swelling Vitals VITALS Vital Signs Date Time Temp Pulse Resp B/P Pulse Ox O2 Delivery O2 Flow Rate FiO2 06/15/16 09:39 76 168/78 06/15/16 08:03 Nasal Cannula 2.0 06/15/16 07:46 97.9 20 93 97.9 Labs Labs Laboratory Tests Test 06/14/16 19:15 06/15/16 03:32 06/15/16 08:05 White Blood Count 3.1x10^3/uL (4.0-11.0) 1.5x10^3/uL (4.0-11.0) Red Blood Count 3.90x10^6/uL (3.50-5.40) 3.79x10^6/uL (3.50-5.40) Hemoglobin 11.4g/dL (12.0-15.5) 11.2g/dL (12.0-15.5) Hematocrit 35.2% (36.0-47.0) 33.9% (36.0-47.0) Mean Corpuscular Volume 90fL (79-100) 89fL (79-100) Mean Corpuscular Hemoglobin 29pg (25-35) 30pg (25-35) Mean Corpuscular Hemoglobin Concent 32g/dL (31-37) 33g/dL (31-37) Red Cell Distribution Width 15.1% (11.5-14.5) 15.4% (11.5-14.5) Platelet Count 147x10^3/uL (140-400) 120x10^3/uL (140-400) Neutrophils (%) (Auto) 47% (31-73) 77% (31-73) Lymphocytes (%) (Auto) 36% (24-48) 19% (24-48) Monocytes (%) (Auto) 12% (0-9) 4% (0-9) Eosinophils (%) (Auto) 4% (0-3) 0% (0-3) Basophils (%) (Auto) 1% (0-3) 1% (0-3) Neutrophils # (Auto) 1.5x10^3uL (1.8-7.7) 1.2x10^3uL (1.8-7.7) Lymphocytes # (Auto) 1.1x10^3/uL (1.0-4.8) 0.3x10^3/uL (1.0-4.8) Monocytes # (Auto) 0.4x10^3/uL (0.0-1.1) 0.1x10^3/uL (0.0-1.1) Eosinophils # (Auto) 0.1x10^3/uL (0.0-0.7) 0.0x10^3/uL (0.0-0.7) Basophils # (Auto) 0.0x10^3/uL (0.0-0.2) 0.0x10^3/uL (0.0-0.2) Sodium Level 139mmol/L (136-145) 139mmol/L (136-145) Potassium Level 4.3mmol/L (3.5-5.1) 4.3mmol/L (3.5-5.1) Chloride Level 101mmol/L (98-107) 102mmol/L (98-107) Carbon Dioxide Level 29mmol/L (21-32) 27mmol/L (21-32) Anion Gap 9 (6-14) 10 (6-14) Blood Urea Nitrogen 43mg/dL (7-20) 26mg/dL (7-20) Creatinine 5.2mg/dL (0.6-1.0) 3.4mg/dL (0.6-1.0) Estimated GFR (Cockcroft-Gault) 8.3 13.5 BUN/Creatinine Ratio 8 (6-20) Glucose Level 146mg/dL (70-99) 232mg/dL (70-99) Calcium Level 8.7mg/dL (8.5-10.1) 8.3mg/dL (8.5-10.1) Total Bilirubin 0.4mg/dL (0.2-1.0) Aspartate Amino Transf (AST/SGOT) 23U/L (15-37) Alanine Aminotransferase (ALT/SGPT) 26U/L (14-59) Alkaline Phosphatase 48U/L (46-116) Troponin I Quantitative 0.047ng/mL (0.000-0.055) SC-Tpz-E-Type Natriuretic Peptide 55689fg/mL (0-124) Total Protein 7.0g/dL (6.4-8.2) Albumin 3.1g/dL (3.4-5.0) Albumin/Globulin Ratio 0.8 (1.0-1.7) Segmented Neutrophils % 80% (35-66) Band Neutrophils % 4% (0-9) Lymphocytes % 14% (24-48) Monocytes % 2% (0-10) Platelet Estimate Adequate (ADEQUATE) Glucose (Fingerstick) 275mg/dL (70-99) Laboratory Tests Test 06/14/16 19:15 06/15/16 03:32 06/15/16 08:05 White Blood Count 3.1x10^3/uL (4.0-11.0) 1.5x10^3/uL (4.0-11.0) Red Blood Count 3.90x10^6/uL (3.50-5.40) 3.79x10^6/uL (3.50-5.40) Hemoglobin 11.4g/dL (12.0-15.5) 11.2g/dL (12.0-15.5) Hematocrit 35.2% (36.0-47.0) 33.9% (36.0-47.0) Mean Corpuscular Volume 90fL (79-100) 89fL (79-100) Mean Corpuscular Hemoglobin 29pg (25-35) 30pg (25-35) Mean Corpuscular Hemoglobin Concent 32g/dL (31-37) 33g/dL (31-37) Red Cell Distribution Width 15.1% (11.5-14.5) 15.4% (11.5-14.5) Platelet Count 147x10^3/uL (140-400) 120x10^3/uL (140-400) Neutrophils (%) (Auto) 47% (31-73) 77% (31-73) Lymphocytes (%) (Auto) 36% (24-48) 19% (24-48) Monocytes (%) (Auto) 12% (0-9) 4% (0-9) Eosinophils (%) (Auto) 4% (0-3) 0% (0-3) Basophils (%) (Auto) 1% (0-3) 1% (0-3) Neutrophils # (Auto) 1.5x10^3uL (1.8-7.7) 1.2x10^3uL (1.8-7.7) Lymphocytes # (Auto) 1.1x10^3/uL (1.0-4.8) 0.3x10^3/uL (1.0-4.8) Monocytes # (Auto) 0.4x10^3/uL (0.0-1.1) 0.1x10^3/uL (0.0-1.1) Eosinophils # (Auto) 0.1x10^3/uL (0.0-0.7) 0.0x10^3/uL (0.0-0.7) Basophils # (Auto) 0.0x10^3/uL (0.0-0.2) 0.0x10^3/uL (0.0-0.2) Sodium Level 139mmol/L (136-145) 139mmol/L (136-145) Potassium Level 4.3mmol/L (3.5-5.1) 4.3mmol/L (3.5-5.1) Chloride Level 101mmol/L (98-107) 102mmol/L (98-107) Carbon Dioxide Level 29mmol/L (21-32) 27mmol/L (21-32) Anion Gap 9 (6-14) 10 (6-14) Blood Urea Nitrogen 43mg/dL (7-20) 26mg/dL (7-20) Creatinine 5.2mg/dL (0.6-1.0) 3.4mg/dL (0.6-1.0) Estimated GFR (Cockcroft-Gault) 8.3 13.5 BUN/Creatinine Ratio 8 (6-20) Glucose Level 146mg/dL (70-99) 232mg/dL (70-99) Calcium Level 8.7mg/dL (8.5-10.1) 8.3mg/dL (8.5-10.1) Total Bilirubin 0.4mg/dL (0.2-1.0) Aspartate Amino Transf (AST/SGOT) 23U/L (15-37) Alanine Aminotransferase (ALT/SGPT) 26U/L (14-59) Alkaline Phosphatase 48U/L (46-116) Troponin I Quantitative 0.047ng/mL (0.000-0.055) GH-Gvq-M-Type Natriuretic Peptide 08475ku/mL (0-124) Total Protein 7.0g/dL (6.4-8.2) Albumin 3.1g/dL (3.4-5.0) Albumin/Globulin Ratio 0.8 (1.0-1.7) Segmented Neutrophils % 80% (35-66) Band Neutrophils % 4% (0-9) Lymphocytes % 14% (24-48) Monocytes % 2% (0-10) Platelet Estimate Adequate (ADEQUATE) Glucose (Fingerstick) 275mg/dL (70-99) Assessment/Plan Assessment/Plan IMP HYPERVOLEMIA ESRD ANEMIA LEUCOPENIA DM II HTN PLAN HD TODAY UF TO DW CONSIDER HEME EVAL WILL FOLLOW MIRIAM THRASHER MD Jun 15, 2016 10:37
[2016-06-15 10:53] VITALS: BP 166/76
[2016-06-15] MEDS ORDERED: INSULIN ASPART 300 UNITS/3 ML INSULN.PEN SQ SCH (12:00)
[2016-06-15] MEDS: INSULIN ASPART 300 UNITS/3 ML INSULN.PEN SQ SCH ×3 (12:35→21:00)
[2016-06-15] MEDS ORDERED: IV NORMAL SALINE 1000ML BAG 1,000 ML IV PRN ×2 (14:51)
--- NOTE | 2016-06-15 14:51 | CARD ---
APPROVED REPORT EXAM: Two-dimensional and M-mode echocardiogram with Doppler and color Doppler. Other Information Quality : GoodHR: 73bpm Rhythm : NSR, PVC's INDICATION Congestive Heart Failure 2D DIMENSIONS Left Atrium(2D)4.0 (1.6-4.0cm)IVSd1.0 (0.7-1.1cm) Aortic Root(2D)2.4 (2.0-3.7cm)LVDd5.3 (3.9-5.9cm) LVOT Diameter2.2 (1.8-2.4cm)PWd1.0 (0.7-1.1cm) LVDs3.7 (2.5-4.0cm)FS (%) 30.2 % SV77.9 mlLVEF(%)57.1 (>50%) Aortic Valve AoV Peak Bhavin.189.4cm/sAoV VTI36.9cm AO Peak GR.14.4mmHgLVOT Peak Bhavin.112.4cm/s LVOT VTI 23.87cmAO Mean GR.8mmHg ZINA (VMAX)1.93kg8XHV (VTI)2.36cm2 Mitral Valve MV E Krcwzgys577.5cm/sMV DECEL NFQU555it MV A Vklnopzm62.6cm/sMV E Mean Gr.3mmHg MV UPU93lqF/A Ratio1.3 MV A Inqetcqo120agBYQ (PHT)4.02cm2 TDI E/Lateral E'19.8E/Medial E'21.4 Pulmonary Valve PV Peak Yeixkfau63.2cm/sPV Peak Grad.3mmHg RVOT VTI20.7cm Tricuspid Valve TR P. Xveyaqme061ki/sRAP MWKVBVXV5qaMm TR Peak Gr.85ofOzSCOM12fpVy Pulmonary Vein S1 Hcegyupq63.2cm/sD2 Fgbumegt84.4cm/s PVa [id number] LEFT VENTRICLE The left ventricle is normal size. There is normal left ventricular wall thickness. Left ventricle sy stolic function is normal. The Ejection Fraction is 55%. There is normal LV segmental wall motion. Th e left ventricular diastolic function and filling is normal for age. RIGHT VENTRICLE The right ventricle is mildly dilated. The right ventricular systolic function is normal. ATRIA The left atrium size is normal. The right atrium is moderately dilated. The interatrial septum is int act with no evidence for an atrial septal defect or patent foramen ovale as noted on 2-D or Doppler i maging. AORTIC VALVE The aortic valve is mildly sclerotic. The aortic valve is trileaflet. Doppler and Color Flow revealed no significant aortic regurgitation. There is no significant aortic valvular stenosis. MITRAL VALVE Mitral annular calcification is moderate. The mitral valve leaflets are thickened. There is no eviden ce of mitral valve prolapse. There is no mitral valve stenosis. Doppler and Color Flow revealed no mi tral valve regurgitation noted. TRICUSPID VALVE The tricuspid valve is normal in structure. Doppler and Color Flow revealed moderate tricuspid regurg itation. There is mild to moderate pulmonary hypertension. The PA pressure was estimated at 41 mmHg. PULMONIC VALVE The pulmonic valve is not well visualized. Doppler and Color Flow revealed trace pulmonic valvular re gurgitation. GREAT VESSELS The aortic root is normal in size. The ascending aorta is normal in size. Normal pulmonary venous stefani w (Doppler). The IVC is dilated and collapses <50% with inspiration. PERICARDIAL EFFUSION There is no evidence of significant pericardial effusion. Critical Notification Critical Value: No <Conclusion> Left ventricle systolic function is normal. The Ejection Fraction is 55%. There is normal LV segmental wall motion. Moderate tricuspid regurgitation. Mild to moderate pulmonary hypertension. The PA pressure was estimated at 41 mmHg. There is no evidence of significant pericardial effusion.
[2016-06-15] MEDS ORDERED: DIPHENHYDRAMINE 50 MG/ML VIAL IV PRN ×2 (15:00)
[2016-06-15] MEDS ORDERED: DIALYSIS PATIENT. MC PRN (15:00)
[2016-06-15 19:00] VITALS: BP 151/68
[2016-06-16 07:00] VITALS: BP 140/66
[2016-06-16] MEDS: CARVEDILOL 6.25 MG TABLET PO SCH ×2 (08:58→17:13)
[2016-06-16] MEDS: AMLODIPINE BESYLATE 5 MG TABLET PO SCH (08:58)
[2016-06-16] MEDS: INSULIN ASPART 300 UNITS/3 ML INSULN.PEN SQ SCH ×3 (09:04→17:00)
[2016-06-16 10:52] VITALS: BP 124/55
--- NOTE | 2016-06-16 11:41 | PDOC ---
Renal-Progress Notes Subjective Notes Notes FEELING BETTER History of Present Illness Hx of present illness STABLE Vitals Vitals Vital Signs Date Time Temp Pulse Resp B/P Pulse Ox O2 Delivery O2 Flow Rate FiO2 06/16/16 10:52 98.3 69 18 124/55 95 Room Air 98.3 06/15/16 19:00 2.0 Weight Weight [ ] I.O. Intake and Output Intake and Output 06/16/16 07:00 Intake Total 1060 ml Output Total 0 ml Balance 1060 ml Intake Oral 1060 ml Output Urine Total 0 ml Labs Labs Laboratory Tests Test 06/15/16 17:36 06/15/16 20:37 Glucose (Fingerstick) 150mg/dL (70-99) 180mg/dL (70-99) Review of Systems Constitutional: yes: alert, no symptom reported, oriented, weakness Ears/Nose/Throat: Yes: no symptom reported Eyes: Yes: no symptom reported Pulmonary: Yes no symptom reported Cardiovascular: Yes no symptom reported Gastrointestional: Yes: no symptom reported Genitourinary: Yes: no symptom reported Musculoskeletal: Yes: no symptom reported Skin: Yes no symptom reported Physical Exam General Appearance: no apparent distress Skin: warm Respiratory: bilateral CTA Heart: S1S2, RRR Abdomen: soft, bowel sounds present Extremities: pulses present Neurology: alert Musculoskeletal: Other Assessment Assessment IMP CHF-COMPENSATED ANEMIA ESRD PLAN HD TODAY UF TO DW OK TO D/C FROM [facility] COMPLIANCE WITH HD MIRIAM THRASHER MD Jun 16, 2016 11:41
[2016-06-16 17:10] VITALS: BP 138/59
[2016-06-16 17:13] VITALS: BP 138/59
[2016-06-16] MEDS ORDERED: DIALYSIS PATIENT. MC PRN ×2 (19:30)
== END 2016-06-16 17:40 | disposition home or self-care (01) | DRG 291 ==
LOC: ER 18:24 → 2 NORTH 22:10 → 6 SOUTH 06-15 21:46
PROVIDERS: ADMIT Internal Medicine; ATTEND Internal Medicine
PROC: 5A1D60Z (ICD-10-PCS; principal; 2016-06-14)
DX: I50.31 Acute diastolic (congestive) heart failure (principal); N18.6 End stage renal disease; I13.2 Hypertensive heart and chronic kidney disease with heart failure and with stage 5 chronic kidney disease, or end stage renal disease; D70.9 Neutropenia, unspecified; D64.9 Anemia, unspecified; E03.9 Hypothyroidism, unspecified; E11.22 Type 2 diabetes mellitus with diabetic chronic kidney disease; E66.9 Obesity, unspecified; Z68.36 Body mass index [BMI] 36.0-36.9, adult; E78.00 Pure hypercholesterolemia, unspecified; E78.5 Hyperlipidemia, unspecified; J44.9 Chronic obstructive pulmonary disease, unspecified; J45.909 Unspecified asthma, uncomplicated; Z91.19 Patient's noncompliance with other medical treatment and regimen; Z99.2 Dependence on renal dialysis
CPT/HCPCS: 36415; 71010; 80048; 80053; 82947; 83036; 83880; 84484; 85007; 85027; 93005; 93306; 94250; 94640; 96374; 96375; J0360; J1815; J1940; J2405; J2930; J7030; J7620; 99291-25

== ENCOUNTER 2017-02-25 10:04 | Emergency (ER) | payer MEDICARE, OTHER ==
[~2017-02-25] VITALS: Ht 154.9 cm; Wt 92.5 kg
[2017-02-25] MEDS ORDERED: ONDANSETRON ODT 4 MG TAB.RAPDIS. PO ONE (10:30)
[2017-02-25 10:45] LABS: BASO % 1 % (0-3); EOS % 2 % (0-3); HEMATOCRIT 28.8 % (36.0-47.0); HEMOGLOBIN 9.8 g/dL (12.0-15.5); LYMPH # 1.4 x10^3/uL (1.0-4.8); LYMPH % 42 % (24-48); MEAN CORPUSCULAR HEMOGLOBIN 32 pg (25-35); MEAN CORPUSCULAR HGB CONC 34 g/dL (31-37); MEAN CORPUSCULAR VOLUME 94 fL (79-100); MONO % 6 % (0-9); NEUT % 49 % (31-73); PLATELET COUNT 128 x10^3/uL (140-400); RED BLOOD COUNT 3.05 x10^6/uL (3.50-5.40); RED CELL DISTRIBUTION WIDTH 14.6 % (11.5-14.5); WHITE BLOOD COUNT 3.4 x10^3/uL (4.0-11.0)
[2017-02-25 10:49] LABS: CALCIUM 7.6 mg/dL (8.5-10.1); CREATININE 2.9 mg/dL (0.6-1.0); GFR 16.2; POTASSIUM 3.4 mmol/L (3.5-5.1)
[2017-02-25 10:55] LABS: ALBUMIN 2.9 g/dL (3.4-5.0); ALBUMIN/GLOBULIN RATIO 0.6 (1.0-1.7); TOTAL BILIRUBIN 0.5 mg/dL (0.2-1.0); TOTAL PROTEIN 7.5 g/dL (6.4-8.2)
[2017-02-25 11:03] LABS: CKMB MASS 0.7 ng/mL (0.0-3.6)
[2017-02-25] MEDS ORDERED: ONDA4TAB10 SL (12:12)
--- NOTE | 2017-02-25 12:12 | PHYS DOC ---
Past Medical History Past Medical History: COPD, Diabetes-Type II, High Cholesterol, Hypertension, Renal Failure Additional Past Medical Histor: hypoxia Past Surgical History: Other Additional Past Surgical Histo: dialysis shunt - left f.arm Alcohol Use: None Drug Use: None Adult General Chief Complaint Chief Complaint: WEAKNESS/GENERALIZED HPI HPI Patient is a 67 year old female brought to the ED by her , she was sent here after dialysis from the dialysis center. Patient dialyzes on Monday, , Monday. Patient states that on Monday night she developed some nausea and vomiting. She's vomited maybe 3 times daily on , Monday. She' s had one or 2 episodes of diarrhea. Patient does not have anything at home for vomiting. She's had no fever or chills. She does not have abdominal pain. She went to dialysis as usual this morning and was run from 632 after 9:00, dialyzes for 3 hours. She had some diarrhea afterwards and felt weak, and they felt like she might be dry to the wanted her to come in and get checked. The patient does make urine at least 3 times a day. For the last day or 2 has had decreased urine output. Pt is diabetic. She does not have chronic problems with vomiting. Review of Systems Review of Systems Constitutional: She has felt hot and cold off and on HENT: Denies nasal congestion or sore throat [] Respiratory: Denies cough or shortness of breath [] Cardiovascular: Denies chest pain them about GI: As in history of present illness : Denies dysuria or hematuria [] Musculoskeletal: Denies back pain or joint pain [] Integument: Denies rash or skin lesions [] Neurologic: Denies headache, focal weakness or sensory changes [] Current Medications Current Medications Current Medications Medications (Trade) Dose Ordered Sig/Jordan Start Time Stop Time Status Last Admin Dose Admin Ondansetron HCl (Zofran Odt) 4 mg 1X ONCE 02/25/17 10:30 02/25/17 10:31 DC 02/25/17 10:41 4 MG Allergies Allergies Allergies Coded Allergies Type Severity Reaction Last Updated Verified No Known Drug Allergies 09/07/15 No Physical Exam Physical Exam Constitutional: Well developed, well nourished, no acute distress, non-toxic appearance. Alert, mentating normally, warm and dry. HENT: Normocephalic, atraumatic, bilateral external ears normal, nose normal. [ ] Eyes: conjunctiva normal, no discharge. [] Neck: Normal range of motion, no stridor. [] Cardiovascular:Heart rate regular rhythm, no murmur [] Lungs & Thorax: Bilateral breath sounds clear to auscultation [] Abdomen: Bowel sounds normal, soft, no tenderness, no masses, no pulsatile masses. [] Skin: Warm, dry, no erythema, no rash. [] Extremities: No tenderness, no cyanosis, no clubbing, ROM intact, no edema. [] Neurologic: Alert and oriented X 3, normal motor function, no focal deficits noted. [] Current Patient Data Vital Signs Vital Signs Date Time Temp Pulse Resp B/P (MAP) Pulse Ox O2 Delivery O2 Flow Rate FiO2 02/25/17 12:28 65 18 97 02/25/17 10:16 98.4 175/84 (114) Room Air 98.4 Lab Values Laboratory Tests Test 02/25/17 10:34 White Blood Count 3.4 x10^3/uL (4.0-11.0) L Red Blood Count 3.05 x10^6/uL (3.50-5.40) L Hemoglobin 9.8 g/dL (12.0-15.5) L Hematocrit 28.8 % (36.0-47.0) L Mean Corpuscular Volume 94 fL (79-100) Mean Corpuscular Hemoglobin 32 pg (25-35) Mean Corpuscular Hemoglobin Concent 34 g/dL (31-37) Red Cell Distribution Width 14.6 % (11.5-14.5) H Platelet Count 128 x10^3/uL (140-400) L Neutrophils (%) (Auto) 49 % (31-73) Lymphocytes (%) (Auto) 42 % (24-48) Monocytes (%) (Auto) 6 % (0-9) Eosinophils (%) (Auto) 2 % (0-3) Basophils (%) (Auto) 1 % (0-3) Neutrophils # (Auto) 1.6 x10^3uL (1.8-7.7) L Lymphocytes # (Auto) 1.4 x10^3/uL (1.0-4.8) Monocytes # (Auto) 0.2 x10^3/uL (0.0-1.1) Eosinophils # (Auto) 0.1 x10^3/uL (0.0-0.7) Basophils # (Auto) 0.0 x10^3/uL (0.0-0.2) Sodium Level 137 mmol/L (136-145) Potassium Level 3.4 mmol/L (3.5-5.1) L Chloride Level 98 mmol/L (98-107) Carbon Dioxide Level 30 mmol/L (21-32) Anion Gap 9 (6-14) Blood Urea Nitrogen 14 mg/dL (7-20) Creatinine 2.9 mg/dL (0.6-1.0) H Estimated GFR (Cockcroft-Gault) 16.2 BUN/Creatinine Ratio 5 (6-20) L Glucose Level 190 mg/dL (70-99) H Calcium Level 7.6 mg/dL (8.5-10.1) L Total Bilirubin 0.5 mg/dL (0.2-1.0) Aspartate Amino Transferase (AST) 40 U/L (15-37) H Alanine Aminotransferase (ALT) 25 U/L (14-59) Alkaline Phosphatase 52 U/L (46-116) Creatine Kinase 99 U/L (26-192) Creatine Kinase MB (Mass) 0.7 ng/mL (0.0-3.6) Creatine Kinase MB Relative Index 0.7 % (0-4) Troponin I Quantitative 0.051 ng/mL (0.000-0.055) Total Protein 7.5 g/dL (6.4-8.2) Albumin 2.9 g/dL (3.4-5.0) L Albumin/Globulin Ratio 0.6 (1.0-1.7) L Laboratory Tests 02/25/17 10:34 Laboratory Tests 02/25/17 10:34 EKG EKG [] Radiology/Procedures Radiology/Procedures [] Course & Med Decision Making Course & Med Decision Making Pertinent Labs and Imaging studies reviewed. (See chart for details) 67-year-old female was sent after dialysis for the concern of weakness and that she might be dehydrated. There was some report initially from the family that the patient was "hypotensive" but the patient was never hypotensive here in the ED, and the nurse who took report from the dialysis nurse stated that the dialysis nurse said the patient had "hypoactive bowel sounds" so I believe possibly this was a miscommunication with family. The patient was not hypotensive. The patient may be a bit dry but her labs are not concerning. She was given a Zofran ODT in the ED and she had no vomiting or diarrhea here. She did well with a by mouth challenge. I believe the patient is safe for discharge with a prescription for Zofran. I talked to the patient and her family about clear liquids, advance slowly, she may be a bit dry but I believe she can safely orally rehydrate at home given the fact that she does make urine and she is allowed a 32 ounce per day fluid allowance. [] Dragon Disclaimer Dragon Disclaimer This electronic medical record was generated, in whole or in part, using a voice recognition dictation system. Departure Departure Impression: Primary Impression: Viral gastroenteritis Disposition: 01 HOME, SELF-CARE Condition: STABLE Referrals: NO PCP (PCP) Patient Instructions: Viral Gastroenteritis, [id number] Additional Instructions: We are not sure what was causing your vomiting and diarrhea, but it may be a virus. We did not find anything serious today in the emergency department. For the next day or 2, stick with small amounts of clear liquids and foods that are easy on your stomach. For example, a small amount of Jell-O, chicken noodle soup, canned peaches, etc. Go ahead and take the entire 32 ounces of liquid that you are allowed, spread out throughout the day. If Needed for vomiting, use ondansetron as prescribed. This dissolves under your tongue and does not need to be swallowed. Scripts Ondansetron (ZOFRAN ODT) 4 Mg Tab.rapdis 1 TAB SL Q8HRS for NAUSEA, #15 TAB Prov: CLOVER RECIO MD 02/25/17 CLOVER RECIO MD Feb 25, 2017 12:12
[2017-02-25 12:28] VITALS: BP 167/75
== END 2017-02-25 12:31 | disposition home or self-care (01) ==
LOC: ER 10:04
DX: K52.9 Noninfective gastroenteritis and colitis, unspecified (principal); E78.00 Pure hypercholesterolemia, unspecified; E11.9 Type 2 diabetes mellitus without complications; J44.9 Chronic obstructive pulmonary disease, unspecified; I10 Essential (primary) hypertension; Z99.2 Dependence on renal dialysis
CPT/HCPCS: 36415; 80053; 82553; 84484; 85025; 99284; Q0162

== ENCOUNTER 2017-03-07 11:11 | Inpatient (IN) | payer MEDICARE, OTHER ==
[~2017-03-07] VITALS: Ht 154.9 cm; Wt 98.0 kg
[~2017-03-07 11:11] MED LIST changes: +ONDA4TAB10 SL
--- NOTE | 2017-03-07 12:11 | PHYS DOC ---
Past Medical History Past Medical History: COPD, Diabetes-Type II, High Cholesterol, Hypertension, Renal Failure Additional Past Medical Histor: hypoxia Past Surgical History: Other Additional Past Surgical Histo: dialysis shunt - left f.arm Alcohol Use: None Drug Use: None Adult General Chief Complaint Chief Complaint: LOWER EXTREMITY SWELLING HPI HPI Patient is a 67 year old female who presents with lower show many swelling. She has end-stage renal disease, COPD, diabetes dyslipidemia and was at dialysis this morning when they noticed that she had swelling of her right lower show many. She did not notice until was pointed out to her. She denies any fevers chills nausea vomiting. She denies any pain or shortness of breath. She states she's never had a blood clot history. Review of Systems Review of Systems Constitutional: Denies fever or chills Eyes: Denies change in visual acuity, redness, or eye pain HENT: Denies nasal congestion or sore throat Respiratory: Denies cough or shortness of breath Cardiovascular: No additional information not addressed in HPI GI: Denies abdominal pain, nausea, vomiting, bloody stools or diarrhea : Denies dysuria or hematuria Musculoskeletal: Denies back pain or joint pain Integument: Denies rash or skin lesions Neurologic: Denies headache, focal weakness or sensory changes Endocrine: Denies polyuria or polydipsia Current Medications Current Medications Current Medications Medications (Trade) Dose Ordered Sig/Jordan Start Time Stop Time Status Last Admin Dose Admin Amlodipine Besylate (Norvasc) 10 mg DAILY 03/08/17 09:00 Heparin Sodium (Porcine) (Heparin Sodium) 1,400 unit PRN Q6HRS PRN 03/07/17 15:00 03/07/17 15:16 DC Heparin Sodium/ Dextrose 500 ml @ 0 mls/hr CONT PRN 03/07/17 15:00 03/07/17 16:59 03/07/17 14:52 30.046 MLS/HR Ondansetron HCl (Zofran Odt) 4 mg PRN Q8HRS PRN 03/07/17 15:00 Ondansetron HCl (Zofran) 4 mg PRN Q6HRS PRN 03/07/17 15:00 03/08/17 14:59 Rivaroxaban (Xarelto) 20 mg DAILYWSUP 03/28/17 17:00 Warfarin Sodium (Coumadin Per Pharmacy) 1 each PRN DAILY PRN 03/07/17 14:30 Cancel Allergies Allergies Allergies Coded Allergies Type Severity Reaction Last Updated Verified No Known Drug Allergies 09/07/15 No Physical Exam Physical Exam Constitutional: Well developed, well nourished, no acute distress, non-toxic appearance. HENT: Normocephalic, atraumatic, bilateral external ears normal, oropharynx moist, no oral exudates, nose normal. Eyes: PERRLA, EOMI, conjunctiva normal, no discharge. Neck: Normal range of motion, no tenderness, supple, no stridor. Cardiovascular:Heart rate regular rhythm, no murmur Lungs & Thorax: Bilateral breath sounds clear to auscultation Abdomen: Bowel sounds normal, soft, no tenderness, no masses, no pulsatile masses. Skin: Warm, dry, no erythema, no rash. Back: No tenderness, no CVA tenderness. Extremities: Swelling of the right lower extremity no cyanosis, no clubbing, ROM intact, Neurologic: Alert and oriented X 3, normal motor function, normal sensory function, no focal deficits noted. Psychologic: Affect normal, judgement normal, mood normal. Current Patient Data Vital Signs Vital Signs Date Time Temp Pulse Resp B/P (MAP) Pulse Ox O2 Delivery O2 Flow Rate FiO2 03/07/17 12:52 80 14 153/66 (95) 94 Room Air 03/07/17 11:58 98.5 98.5 Lab Values Laboratory Tests Test 03/07/17 14:06 White Blood Count 4.9 x10^3/uL (4.0-11.0) Red Blood Count 3.25 x10^6/uL (3.50-5.40) L Hemoglobin 10.3 g/dL (12.0-15.5) L Hematocrit 30.3 % (36.0-47.0) L Mean Corpuscular Volume 94 fL (79-100) Mean Corpuscular Hemoglobin 32 pg (25-35) Mean Corpuscular Hemoglobin Concent 34 g/dL (31-37) Red Cell Distribution Width 14.7 % (11.5-14.5) H Platelet Count 191 x10^3/uL (140-400) Neutrophils (%) (Auto) 53 % (31-73) Lymphocytes (%) (Auto) 33 % (24-48) Monocytes (%) (Auto) 12 % (0-9) H Eosinophils (%) (Auto) 2 % (0-3) Basophils (%) (Auto) 1 % (0-3) Neutrophils # (Auto) 2.6 x10^3uL (1.8-7.7) Lymphocytes # (Auto) 1.6 x10^3/uL (1.0-4.8) Monocytes # (Auto) 0.6 x10^3/uL (0.0-1.1) Eosinophils # (Auto) 0.1 x10^3/uL (0.0-0.7) Basophils # (Auto) 0.1 x10^3/uL (0.0-0.2) Prothrombin Time 12.7 SEC (11.7-14.0) Prothrombin Time INR 1.0 (0.8-1.1) Sodium Level 139 mmol/L (136-145) Potassium Level 3.5 mmol/L (3.5-5.1) Chloride Level 99 mmol/L (98-107) Carbon Dioxide Level 33 mmol/L (21-32) H Anion Gap 7 (6-14) Blood Urea Nitrogen 10 mg/dL (7-20) Creatinine 3.0 mg/dL (0.6-1.0) H Estimated GFR (Cockcroft-Gault) 15.6 BUN/Creatinine Ratio 3 (6-20) L Glucose Level 174 mg/dL (70-99) H Calcium Level 8.1 mg/dL (8.5-10.1) L Total Bilirubin 0.4 mg/dL (0.2-1.0) Aspartate Amino Transferase (AST) 17 U/L (15-37) Alanine Aminotransferase (ALT) 27 U/L (14-59) Alkaline Phosphatase 72 U/L (46-116) Total Protein 7.9 g/dL (6.4-8.2) Albumin 3.1 g/dL (3.4-5.0) L Albumin/Globulin Ratio 0.6 (1.0-1.7) L Laboratory Tests 03/07/17 14:06 Laboratory Tests 03/07/17 14:06 EKG EKG [] Radiology/Procedures Radiology/Procedures [facility] [address] [place] [address] IMAGING REPORT Signed PATIENT: TJ HOOKS ACCOUNT: [id number] : 1950 LOCATION: ER AGE: 67 SEX: F EXAM STATUS: REG ER ORD. PHYSICIAN: CHERYLE MENDEZ MD REASON: swelling rle PROCEDURE: VENOUS LOWER EXT BILATERAL Indication: Right lower extremity pain and swelling. Technique: Grayscale, color-flow, and spectral waveform analysis was performed. No comparison is available. Findings: Exam is positive for deep vein thrombosis throughout the right lower extremity from the calf veins through the common femoral vein. This thrombus appears occlusive in the common and superficial femoral veins. There is partial thrombus in the popliteal vein and peroneal veins. The left lower extremity is negative for deep vein thrombosis with all vessels compressible and with normal phasicity of waveform and augmentation. Impression: Exam is positive for deep vein thrombosis throughout the right lower extremity. Left lower extremity is negative for DVT. DICTATED and SIGNED BY: DONALD PERALES MD DATE: 03/07/171326 CC: CHERYLE MENDEZ MD; NO PCP ~ Impressions: Right lower extremity DVT End-stage renal disease on hemodialysis Course & Med Decision Making Course & Med Decision Making Pertinent Labs and Imaging studies reviewed. (See chart for details) Patient being admitted on a heparin drip for DVT. Hospitalist Dr. Cross accepts the patient for admission. I placed consultation with nephrology as she dialyzes Saturdays. Dragon Disclaimer Dragon Disclaimer This electronic medical record was generated, in whole or in part, using a voice recognition dictation system. Departure Departure Impression: Primary Impression: DVT (deep venous thrombosis) Disposition: 01 HOME, SELF-CARE Admitting Physician: Areli Cross Condition: STABLE Referrals: NO PCP (PCP) Problem Qualifiers Primary Impression: DVT (deep venous thrombosis) Affected thrombotic vein of extremity: other lower extremity vein Chronicity : acute Laterality: right CHERYLE MENDEZ MD Mar 07, 2017 12:11
--- NOTE | 2017-03-07 13:33 | RAD ---
Indication: Right lower extremity pain and swelling. Technique: Grayscale, color-flow, and spectral waveform analysis was performed. No comparison is available. Findings: Exam is positive for deep vein thrombosis throughout the right lower extremity from the calf veins through the common femoral vein. This thrombus appears occlusive in the common and superficial femoral veins. There is partial thrombus in the popliteal vein and peroneal veins. The left lower extremity is negative for deep vein thrombosis with all vessels compressible and with normal phasicity of waveform and augmentation. Impression: Exam is positive for deep vein thrombosis throughout the right lower extremity. Left lower extremity is negative for DVT.
[2017-03-07] MEDS ORDERED: ONDANSETRON PF 4 MG/2 ML VIAL. IV PRN ×2 (14:45→15:00)
[2017-03-07] MEDS ORDERED: HEPARIN for IV BOLUS 10,000 UNIT/10 ML VIAL. IV ONE (14:45)
[2017-03-07 14:46] LABS: BASO # 0.1 x10^3/uL (0.0-0.2); BASO % 1 % (0-3); EOS % 2 % (0-3); HEMATOCRIT 30.3 % (36.0-47.0); HEMOGLOBIN 10.3 g/dL (12.0-15.5); LYMPH # 1.6 x10^3/uL (1.0-4.8); LYMPH % 33 % (24-48); MEAN CORPUSCULAR HEMOGLOBIN 32 pg (25-35); MEAN CORPUSCULAR HGB CONC 34 g/dL (31-37); MEAN CORPUSCULAR VOLUME 94 fL (79-100); MONO % 12 % (0-9); NEUT % 53 % (31-73); PLATELET COUNT 191 x10^3/uL (140-400); RED BLOOD COUNT 3.25 x10^6/uL (3.50-5.40); RED CELL DISTRIBUTION WIDTH 14.7 % (11.5-14.5); WHITE BLOOD COUNT 4.9 x10^3/uL (4.0-11.0)
[2017-03-07 14:54] LABS: PROTHROMBIN TIME PATIENT 12.7 SEC (11.7-14.0)
[2017-03-07 14:58] LABS: CALCIUM 8.1 mg/dL (8.5-10.1); GFR 15.6; POTASSIUM 3.5 mmol/L (3.5-5.1)
[2017-03-07] MEDS ORDERED: HEPARIN 25,000UTS/500ML PREMIX 500 ML IV PRN (15:00)
[2017-03-07] MEDS ORDERED: HEPARIN for IV BOLUS 10,000 UNIT/10 ML VIAL. IV PRN ×2 (15:00)
[2017-03-07] MEDS ORDERED: ONDANSETRON ODT 4 MG TAB.RAPDIS. PO PRN (15:00)
[2017-03-07 15:04] LABS: ALBUMIN 3.1 g/dL (3.4-5.0); ALBUMIN/GLOBULIN RATIO 0.6 (1.0-1.7); TOTAL BILIRUBIN 0.4 mg/dL (0.2-1.0); TOTAL PROTEIN 7.9 g/dL (6.4-8.2)
--- NOTE | 2017-03-07 15:05 | PDOC1 ---
History and Physical Date of Admission Date of Admission DATE: 03/07/17 TIME: 14:58 Identification/Chief Complaint Chief Complaint RT leg swelling and redness Problems: Source Source: Caregiver, Chart review, Patient History of Present Illness History of Present Illness Very plessant 6 y.o obese, limited obility, ambulates with wheelchair or walker ? comes in from HD bec HD noticed RT leg more swollen and red and tight than left, PT DENIES ANY pain and did not notice this, US shows extensive DVT along the course of the superficial femoral vein, Started on heparin gtt at ER, will stat xarelto tonight, CAn stop heparin gt after xarelto tonight. Denies recent sx or long trips, no fam hx coagulopathy, no prior DVT or PE,. NO issues with ASA or blood thinners in the past. DENIES SOA, VS and labs hemodynamically stable. Past Medical History Cardiovascular: CHF, HTN, Hyperlipidemia Pulmonary: Asthma, COPD, Other CENTRAL NERVOUS SYSTEM: Other GI: No pertinent hx Heme/Onc: No pertinent hx Psych: Depression Musculoskeletal: Other Rheumatologic: No pertinent hx Infectious disease: No pertinent hx Renal/: Acute renal failure Endocrine: Diabetes, Hypothyroidism, Other Past Surgical History Past Surgical History: Cholecystectomy, Cataract Removal, Tonsillectomy Family History Family History: No Significant, Diabetes, Family History Unknown Social History Smoke: No ALCOHOL: none Drugs: None Current Medications Current Medications Current Medications Heparin Sodium (Porcine) (Heparin Sodium) 7,500 unit 1X ONCE IV Last administered on 03/07/17 14:50; Start 03/07/17 at 14:45; Stop 03/07/17 at 14 :46; Status DC Heparin Sodium/ Dextrose 500 ml @ 0 mls/hr CONT PRN IV SEE I/O RECORD Last administered on 03/07/17 14:52; Start 03/07/17 at 15:00 Heparin Sodium (Porcine) (Heparin Sodium) 2,800 unit PRN Q6HRS PRN IV FOR UFH LEVEL LESS THAN 0.2; Start 03/07/17 at 15:00 Heparin Sodium (Porcine) (Heparin Sodium) 1,400 unit PRN Q6HRS PRN IV FOR UFH LEVEL 0.2 - 0.29; Start 03/07/17 at 15:00 Warfarin Sodium (Coumadin Per Pharmacy) 1 each PRN DAILY PRN MC PER PROTOCOL; Start 03/07/17 at 14:30 Ondansetron HCl (Zofran) 4 mg PRN Q8HRS PRN IV NAUSEA/VOMITING; Start at 14:45; Stop 03/08/17 at 14:44 Active Scripts Active Zofran Odt (Ondansetron) 4 Mg Tab.rapdis 1 Tab SL Q8HRS Reported Norvasc (Amlodipine Besylate) 5 Mg Tablet 10 Mg PO DAILY Allergies Allergies: Coded Allergies: No Known Drug Allergies (Unverified , 09/07/15) ROS Review of System denies 14 pt reviewed with her Physical Exam General: Alert, Oriented X3, Cooperative, No acute distress HEENT: Atraumatic, PERRLA, EOMI Lungs: Clear to auscultation, Normal air movement Heart: S1S2, RRR, no gallops, no murmurs Cardiovascular: S1, S2 Breasts: Normal, Rt breast nml w/o mass, Lt breast nml w/o mass, Nipples normal Abdomen: Normal bowel sounds, Soft, No tenderness, No hepatosplenomegaly, No masses Rectal Exam: not examined Extremities: Other (redness, swelling, tigtness, no tenderness rt calf and thigh compared to left) Neuro: Normal gait, Normal speech, Strength at 5/5 X4 ext, Normal tone, Sensation intact, Cranial nerves 3-12 NL, Reflexes 2+ Psych/Mental Status: Mental status NL, Mood NL Vitals Vitals Vital Signs Date Time Temp Pulse Resp B/P (MAP) Pulse Ox O2 Delivery O2 Flow Rate FiO2 03/07/17 12:52 80 14 153/66 (95) 94 Room Air 03/07/17 11:58 98.5 98.5 Labs Labs Laboratory Tests Test 03/07/17 14:06 White Blood Count 4.9 x10^3/uL (4.0-11.0) Red Blood Count 3.25 x10^6/uL (3.50-5.40) Hemoglobin 10.3 g/dL (12.0-15.5) Hematocrit 30.3 % (36.0-47.0) Mean Corpuscular Volume 94 fL (79-100) Mean Corpuscular Hemoglobin 32 pg (25-35) Mean Corpuscular Hemoglobin Concent 34 g/dL (31-37) Red Cell Distribution Width 14.7 % (11.5-14.5) Platelet Count 191 x10^3/uL (140-400) Neutrophils (%) (Auto) 53 % (31-73) Lymphocytes (%) (Auto) 33 % (24-48) Monocytes (%) (Auto) 12 % (0-9) Eosinophils (%) (Auto) 2 % (0-3) Basophils (%) (Auto) 1 % (0-3) Neutrophils # (Auto) 2.6 x10^3uL (1.8-7.7) Lymphocytes # (Auto) 1.6 x10^3/uL (1.0-4.8) Monocytes # (Auto) 0.6 x10^3/uL (0.0-1.1) Eosinophils # (Auto) 0.1 x10^3/uL (0.0-0.7) Basophils # (Auto) 0.1 x10^3/uL (0.0-0.2) Prothrombin Time 12.7 SEC (11.7-14.0) Prothromb Time International Ratio 1.0 (0.8-1.1) Laboratory Tests Test 03/07/17 14:06 White Blood Count 4.9 x10^3/uL (4.0-11.0) Red Blood Count 3.25 x10^6/uL (3.50-5.40) Hemoglobin 10.3 g/dL (12.0-15.5) Hematocrit 30.3 % (36.0-47.0) Mean Corpuscular Volume 94 fL (79-100) Mean Corpuscular Hemoglobin 32 pg (25-35) Mean Corpuscular Hemoglobin Concent 34 g/dL (31-37) Red Cell Distribution Width 14.7 % (11.5-14.5) Platelet Count 191 x10^3/uL (140-400) Neutrophils (%) (Auto) 53 % (31-73) Lymphocytes (%) (Auto) 33 % (24-48) Monocytes (%) (Auto) 12 % (0-9) Eosinophils (%) (Auto) 2 % (0-3) Basophils (%) (Auto) 1 % (0-3) Neutrophils # (Auto) 2.6 x10^3uL (1.8-7.7) Lymphocytes # (Auto) 1.6 x10^3/uL (1.0-4.8) Monocytes # (Auto) 0.6 x10^3/uL (0.0-1.1) Eosinophils # (Auto) 0.1 x10^3/uL (0.0-0.7) Basophils # (Auto) 0.1 x10^3/uL (0.0-0.2) Prothrombin Time 12.7 SEC (11.7-14.0) Prothromb Time International Ratio 1.0 (0.8-1.1) VTE Prophylaxis Ordered VTE Prophylaxis Devices: Yes VTE Pharmacological Prophylaxi: Yes Assessment/Plan Assessment/Plan 1. RT superficial femoral vein DVT 2. LIMITED mobility 3. ESRD on HD TTHSAT 4. HTN, COPD, DM all chronic stable PLAn: Admit HEparin was started at ER Will start xarelto 15 BID x 7 days then 20 mg PO qdaily for 3-6 mos Advise interval SOno RT leg in 3 mos MAy dc heparin gtt tonight after first dose xarelto (no bridging needed) PT/OT Ambulate AD mariajose Hook tele If no desats, hemodynamic instability etc overnight, may go home tmr on xarelto - I advise 3 -mos of AC pending interval sono Dw whole family seen at ER HD per renal ABEL PITTMAN MD Mar 07, 2017 15:05
[2017-03-07] MEDS ORDERED: CARV6.252 PO (16:12)
[2017-03-07] MEDS ORDERED: FURO80TA72 PO (16:13)
[2017-03-07] MEDS ORDERED: INSU100I13 SQ (16:13)
[2017-03-07] MEDS ORDERED: LISI10TA2 PO (16:14)
[2017-03-07] MEDS ORDERED: MIDO5TAB PO (16:17)
[2017-03-07] MEDS ORDERED: LISI-334 PO (16:17)
[2017-03-07] MEDS ORDERED: HYDR-971 PO (16:18)
[2017-03-07] MEDS ORDERED: ATOR10TA PO (16:18)
[2017-03-07] MEDS ORDERED: INSU100V31 SQ (16:19)
[2017-03-07] MEDS ORDERED: CALC300T5 PO (16:21)
[2017-03-07] MEDS: RIVAROXABAN 15 MG TABLET. PO SCH (17:00)
[2017-03-07] MEDS ORDERED: DEXTROSE 50% 25 GM / 50ML DISP.SYRIN. IV PRN (18:15)
[2017-03-07 18:52] VITALS: BP 98/62
[2017-03-07 19:00] VITALS: BP 165/64
[2017-03-07] MEDS: INSULIN ASPART 300 UNITS/3 ML INSULN.PEN SQ SCH (19:15)
[2017-03-07] MEDS: FUROSEMIDE 80 MG TABLET. PO SCH (20:53)
[2017-03-07] MEDS: ATORVASTATIN CALCIUM 10 MG TABLET. PO SCH (20:53)
[2017-03-07] MEDS: CALCIUM CARBONATE 500 MG TAB.CHEW PO SCH (20:53)
[2017-03-07] MEDS: LISINOPRIL 20 MG TABLET PO SCH (20:54)
[2017-03-07] MEDS: CARVEDILOL 6.25 MG TABLET. PO SCH (20:54)
[2017-03-07 23:00] VITALS: BP 122/47
[2017-03-07] MEDS: INSULIN DETEMIR 300 UNITS/3 ML INSULN.PEN. SQ SCH (23:01)
[2017-03-08 03:00] VITALS: BP 147/47
[2017-03-08 05:36] LABS: CALCIUM 8.8 mg/dL (8.5-10.1); CREATININE 4.6 mg/dL (0.6-1.0); GFR 9.5; POTASSIUM 3.6 mmol/L (3.5-5.1)
[2017-03-08 05:57] LABS: BASO # 0.1 x10^3/uL (0.0-0.2); BASO % 1 % (0-3); EOS % 3 % (0-3); HEMATOCRIT 29.1 % (36.0-47.0); LYMPH # 2.2 x10^3/uL (1.0-4.8); LYMPH % 43 % (24-48); MEAN CORPUSCULAR HEMOGLOBIN 32 pg (25-35); MEAN CORPUSCULAR HGB CONC 34 g/dL (31-37); MEAN CORPUSCULAR VOLUME 94 fL (79-100); MONO % 11 % (0-9); NEUT % 42 % (31-73); PLATELET COUNT 185 x10^3/uL (140-400); RED CELL DISTRIBUTION WIDTH 14.9 % (11.5-14.5); WHITE BLOOD COUNT 5.2 x10^3/uL (4.0-11.0)
[2017-03-08 07:00] VITALS: BP 109/30
[2017-03-08] MEDS ORDERED: INSULIN ASPART 300 UNITS/3 ML INSULN.PEN SQ SCH (08:00)
[2017-03-08] MEDS: FUROSEMIDE 80 MG TABLET. PO SCH ×2 (09:00→15:53)
[2017-03-08] MEDS ORDERED: amLODIPine BESYLATE 10 MG TABLET PO SCH (09:00)
[2017-03-08] MEDS ORDERED: INSULIN DETEMIR 300 UNITS/3 ML INSULN.PEN. SQ SCH (09:00)
[2017-03-08] MEDS ORDERED: MIDODRINE 5 MG TABLET PO SCH (09:00)
[2017-03-08] MEDS: RIVAROXABAN 15 MG TABLET. PO SCH ×2 (09:16→17:23)
[2017-03-08] MEDS: CALCIUM CARBONATE 500 MG TAB.CHEW PO SCH (09:21)
[2017-03-08] MEDS: INSULIN ASPART 300 UNITS/3 ML INSULN.PEN SQ SCH ×3 (09:52→17:26)
[2017-03-08 11:00] VITALS: BP 95/34
--- NOTE | 2017-03-08 11:44 | PDOC2 ---
CONSULT Date of Consult Date of Consult DATE: 03/08/17 TIME: 11:36 Reason for Consult Reason for Consult: ESRD - TTSat Referring Physician Referring Physician: Dr Cross Identification/Chief Complaint Chief Complaint none from pt HD Rn at OP HD unit noticed Rt Lower ext >> Left so sent to ER for DVT eval Problems: Source Source: Chart review, Patient History of Present Illness Reason for Visit: as dictated Past Medical History Cardiovascular: CHF, HTN, Hyperlipidemia Pulmonary: Asthma, COPD, Other CENTRAL NERVOUS SYSTEM: Other GI: No pertinent hx Heme/Onc: No pertinent hx Psych: Depression Musculoskeletal: Other Rheumatologic: No pertinent hx Infectious disease: No pertinent hx Renal/: Acute renal failure Endocrine: Diabetes, Hypothyroidism, Other Past Surgical History Past Surgical History: Cholecystectomy, Cataract Removal, Tonsillectomy Family History Family History: No Significant, Diabetes, Family History Unknown Social History No ALCOHOL: none Drugs: None Lives: with Family Current Problem List Problem List Problems Medical Problems: (1) DVT (deep venous thrombosis) Status: Acute Current Medications Current Medications Current Medications Heparin Sodium (Porcine) (Heparin Sodium) 7,500 unit 1X ONCE IV Last administered on 03/07/17 14:50; Admin Dose 7,500 UNIT; Start 03/07/17 at 14: 45; Stop 03/07/17 at 14:46; Status DC Heparin Sodium/ Dextrose 500 ml @ 0 mls/hr CONT PRN IV SEE I/O RECORD Last administered on 03/07/17 14:52; Admin Dose 30.046 MLS/HR; Start 03/07/17 at 15:00; Stop 03/07/17 at 16:59; Status DC Heparin Sodium (Porcine) (Heparin Sodium) 2,800 unit PRN Q6HRS PRN IV FOR UFH LEVEL LESS THAN 0.2; Start 03/07/17 at 15:00; Stop 03/07/17 at 15:16; Status DC Heparin Sodium (Porcine) (Heparin Sodium) 1,400 unit PRN Q6HRS PRN IV FOR UFH LEVEL 0.2 - 0.29; Start 03/07/17 at 15:00; Stop 03/07/17 at 15:16; Status DC Warfarin Sodium (Coumadin Per Pharmacy) 1 each PRN DAILY PRN MC PER PROTOCOL; Start 03/07/17 at 14:30; Status Cancel Ondansetron HCl (Zofran) 4 mg PRN Q8HRS PRN IV NAUSEA/VOMITING; Start at 14:45; Stop 03/07/17 at 14:58; Status DC Ondansetron HCl (Zofran) 4 mg PRN Q6HRS PRN IV NAUSEA/VOMITING; Start at 15:00; Stop 03/08/17 at 14:59 Rivaroxaban (Xarelto) 15 mg BIDWMEALS PO Last administered on 03/08/17 09:16 ; Admin Dose 15 MG; Start 03/07/17 at 17:00; Stop 03/27/17 at 17:01 Amlodipine Besylate (Norvasc) 10 mg DAILY PO ; Start 03/08/17 at 09:00 Ondansetron HCl (Zofran Odt) 4 mg PRN Q8HRS PRN PO NAUSEA/VOMITING; Start at 15:00 Rivaroxaban (Xarelto) 20 mg DAILYWSUP PO ; Start 03/28/17 at 17:00 Insulin Aspart (NovoLOG) 0-9 UNITS TIDWMEALS SQ ; Start 03/08/17 at 08:00; Stop 03/08/17 at 08:00; Status DC Dextrose (Dextrose 50%-Water Syringe) 12.5 gm PRN Q15MIN PRN IV SEE COMMENTS; Start 03/07/17 at 18:15 Atorvastatin Calcium (Lipitor) 10 mg QHS PO Last administered on 03/07/17 20: 53; Admin Dose 10 MG; Start 03/07/17 at 21:00 Carvedilol (Coreg) 6.25 mg HS PO Last administered on 03/07/17 20:54; Admin Dose 6.25 MG; Start 03/07/17 at 21:00 Furosemide (Lasix) 80 mg BID94 PO Last administered on 03/07/17 20:53; Admin Dose 80 MG; Start 03/07/17 at 21:00 Lisinopril (Prinivil) 20 mg HS PO Last administered on 03/07/17 20:54; Admin Dose 20 MG; Start 03/07/17 at 21:00 Midodrine (Proamatine) 5 mg DAILY PO Last administered on 03/08/17 09:20; Admin Dose 5 MG; Start 03/08/17 at 09:00 Calcium Carbonate/ Glycine (Tums) 1,000 mg QHS PO Last administered on 09:21; Admin Dose 1,000 MG; Start 03/07/17 at 21:00 Insulin Detemir (Levemir) 20 units DAILY SQ ; Start 03/08/17 at 09:00; Stop at 09:00; Status DC Insulin Aspart (NovoLOG) 0-9 UNITS TIDWMEALS SQ Last administered on 09:52; Admin Dose 7 UNITS; Start 03/07/17 at 19:00 Insulin Detemir (Levemir) 20 units QHS SQ Last administered on 03/07/17 23:01 ; Admin Dose 20 UNITS; Start 03/07/17 at 22:30 Active Scripts Active Reported Tums (Calcium Carbonate) 300 Mg Tab.chew 2 Mg PO HS Lipitor (Atorvastatin Calcium) 10 Mg Tablet 1 Tab PO QHS Midodrine Hcl 5 Mg Tablet 5 Mg PO Lisinopril 20 Mg Tablet 1 Tab PO HS Lasix (Furosemide) 80 Mg Tablet 80 Mg PO BID Lantus Solostar (Insulin Glargine,Hum.rec.anlog) 100 Unit/1 Ml Insuln.pen 20 Unit SQ DAILY Carvedilol 6.25 Mg Tablet 6.25 Mg PO HS Norvasc (Amlodipine Besylate) 5 Mg Tablet 10 Mg PO DAILY Allergies Allergies: Coded Allergies: No Known Drug Allergies (Unverified , 09/07/15) ROS Review of System GEN: no Fevers no Chills EYES: no Visual Complaints ENT: no EN Drainage no Hearing deficiets CVS: no Orthopnea no CP RESP: no SOB no MIGUEL GI: no Nausea no Vomiting : no Dysuria no Urgency HEME: no easy bruising no Palp Ly Nodes NEURO no Focal Weakness no Sz PSYCH: no Suicidal Ideation no Depression SKIN: no Rashes ENDO: no Polyuria or Polydipsia no Hot/Cold Intolerance MU SK: occ Arthraigia no Myalgia Physical Exam Physical Exam General Appearance: Awake Alert Oriented x 3 In no Distress Eyes: VIsion Unchanged Conjunctiva Normal EN: No EN Drainage Mucous Memb. moist Neck: no JVD min JVP Supple no Thyromegaly CVS: S1 S2 soft Murmur No Gallop No Rub ++ Rt Edema Resp: no Rales no Rhonchi no Acc. Muscle use GI: BAS +ve NO Bruit Non Tender Non Distended : no CVA tenderness; no Suprapubic Tenderness SKIN: no Rashes Breast Exam deferred - Skin fold / abd with significant Odor Mu.Sk: Adequate ROM no Muscle Atrophy Heme: Unable to palpate Obvious LAD no Splenomegaly NEURO: Good Strength and Tone Cranial Nerves II - XII grossly intact Psych: not Depressed no Active hallucination Vital Signs Vital Signs Date Time Temp Pulse Resp B/P (MAP) Pulse Ox O2 Delivery O2 Flow Rate FiO2 03/08/17 11:00 98.1 77 20 95/34 (54) 97 Room Air 98.1 Assessment & Plan ESRD: Current FLuid and E-lyte status does not necessitate emergent need for Dialysis. Will re-evaluate for Dialysis in am and continue on TTSat schedule. Anemia: Hold Epogen until Pros/ cons of EPO in setting of Spontaneous DVT can be reassessed. Transfuse with next HD as needed. HTN: Current BP meds reviewed. See orders for changes. hold Midodrine Intra-dialytic HypoTension - D/c Norvasc and Midodrine and reval Bone & Mineral: follow phos and reval binder regimen DVT - consult Heme re contd use of EPO Discussed Plan of Care and prognosis etc. at length withpt Labs Labs Laboratory Tests Test 03/07/17 14:06 03/07/17 18:07 03/07/17 22:57 03/08/17 04:26 White Blood Count 4.9 x10^3/uL (4.0-11.0) 5.2 x10^3/uL (4.0-11.0) Red Blood Count 3.25 x10^6/uL (3.50-5.40) 3.10 x10^6/uL (3.50-5.40) Hemoglobin 10.3 g/dL (12.0-15.5) 10.0 g/dL (12.0-15.5) Hematocrit 30.3 % (36.0-47.0) 29.1 % (36.0-47.0) Mean Corpuscular Volume 94 fL (79-100) 94 fL (79-100) Mean Corpuscular Hemoglobin 32 pg (25-35) 32 pg (25-35) Mean Corpuscular Hemoglobin Concent 34 g/dL (31-37) 34 g/dL (31-37) Red Cell Distribution Width 14.7 % (11.5-14.5) 14.9 % (11.5-14.5) Platelet Count 191 x10^3/uL (140-400) 185 x10^3/uL (140-400) Neutrophils (%) (Auto) 53 % (31-73) 42 % (31-73) Lymphocytes (%) (Auto) 33 % (24-48) 43 % (24-48) Monocytes (%) (Auto) 12 % (0-9) 11 % (0-9) Eosinophils (%) (Auto) 2 % (0-3) 3 % (0-3) Basophils (%) (Auto) 1 % (0-3) 1 % (0-3) Neutrophils # (Auto) 2.6 x10^3uL (1.8-7.7) 2.2 x10^3uL (1.8-7.7) Lymphocytes # (Auto) 1.6 x10^3/uL (1.0-4.8) 2.2 x10^3/uL (1.0-4.8) Monocytes # (Auto) 0.6 x10^3/uL (0.0-1.1) 0.6 x10^3/uL (0.0-1.1) Eosinophils # (Auto) 0.1 x10^3/uL (0.0-0.7) 0.2 x10^3/uL (0.0-0.7) Basophils # (Auto) 0.1 x10^3/uL (0.0-0.2) 0.1 x10^3/uL (0.0-0.2) Prothrombin Time 12.7 SEC (11.7-14.0) Prothromb Time International Ratio 1.0 (0.8-1.1) Sodium Level 139 mmol/L (136-145) 136 mmol/L (136-145) Potassium Level 3.5 mmol/L (3.5-5.1) 3.6 mmol/L (3.5-5.1) Chloride Level 99 mmol/L (98-107) 98 mmol/L (98-107) Carbon Dioxide Level 33 mmol/L (21-32) 33 mmol/L (21-32) Anion Gap 7 (6-14) 5 (6-14) Blood Urea Nitrogen 10 mg/dL (7-20) 20 mg/dL (7-20) Creatinine 3.0 mg/dL (0.6-1.0) 4.6 mg/dL (0.6-1.0) Estimated GFR (Cockcroft-Gault) 15.6 9.5 BUN/Creatinine Ratio 3 (6-20) Glucose Level 174 mg/dL (70-99) 154 mg/dL (70-99) Calcium Level 8.1 mg/dL (8.5-10.1) 8.8 mg/dL (8.5-10.1) Total Bilirubin 0.4 mg/dL (0.2-1.0) Aspartate Amino Transf (AST/SGOT) 17 U/L (15-37) Alanine Aminotransferase (ALT/SGPT) 27 U/L (14-59) Alkaline Phosphatase 72 U/L (46-116) Total Protein 7.9 g/dL (6.4-8.2) Albumin 3.1 g/dL (3.4-5.0) Albumin/Globulin Ratio 0.6 (1.0-1.7) Glucose (Fingerstick) 302 mg/dL (70-99) 146 mg/dL (70-99) Test 03/08/17 09:45 Glucose (Fingerstick) 280 mg/dL (70-99) Laboratory Tests Test 03/07/17 14:06 03/07/17 18:07 03/07/17 22:57 03/08/17 04:26 White Blood Count 4.9 x10^3/uL (4.0-11.0) 5.2 x10^3/uL (4.0-11.0) Red Blood Count 3.25 x10^6/uL (3.50-5.40) 3.10 x10^6/uL (3.50-5.40) Hemoglobin 10.3 g/dL (12.0-15.5) 10.0 g/dL (12.0-15.5) Hematocrit 30.3 % (36.0-47.0) 29.1 % (36.0-47.0) Mean Corpuscular Volume 94 fL (79-100) 94 fL (79-100) Mean Corpuscular Hemoglobin 32 pg (25-35) 32 pg (25-35) Mean Corpuscular Hemoglobin Concent 34 g/dL (31-37) 34 g/dL (31-37) Red Cell Distribution Width 14.7 % (11.5-14.5) 14.9 % (11.5-14.5) Platelet Count 191 x10^3/uL (140-400) 185 x10^3/uL (140-400) Neutrophils (%) (Auto) 53 % (31-73) 42 % (31-73) Lymphocytes (%) (Auto) 33 % (24-48) 43 % (24-48) Monocytes (%) (Auto) 12 % (0-9) 11 % (0-9) Eosinophils (%) (Auto) 2 % (0-3) 3 % (0-3) Basophils (%) (Auto) 1 % (0-3) 1 % (0-3) Neutrophils # (Auto) 2.6 x10^3uL (1.8-7.7) 2.2 x10^3uL (1.8-7.7) Lymphocytes # (Auto) 1.6 x10^3/uL (1.0-4.8) 2.2 x10^3/uL (1.0-4.8) Monocytes # (Auto) 0.6 x10^3/uL (0.0-1.1) 0.6 x10^3/uL (0.0-1.1) Eosinophils # (Auto) 0.1 x10^3/uL (0.0-0.7) 0.2 x10^3/uL (0.0-0.7) Basophils # (Auto) 0.1 x10^3/uL (0.0-0.2) 0.1 x10^3/uL (0.0-0.2) Prothrombin Time 12.7 SEC (11.7-14.0) Prothromb Time International Ratio 1.0 (0.8-1.1) Sodium Level 139 mmol/L (136-145) 136 mmol/L (136-145) Potassium Level 3.5 mmol/L (3.5-5.1) 3.6 mmol/L (3.5-5.1) Chloride Level 99 mmol/L (98-107) 98 mmol/L (98-107) Carbon Dioxide Level 33 mmol/L (21-32) 33 mmol/L (21-32) Anion Gap 7 (6-14) 5 (6-14) Blood Urea Nitrogen 10 mg/dL (7-20) 20 mg/dL (7-20) Creatinine 3.0 mg/dL (0.6-1.0) 4.6 mg/dL (0.6-1.0) Estimated GFR (Cockcroft-Gault) 15.6 9.5 BUN/Creatinine Ratio 3 (6-20) Glucose Level 174 mg/dL (70-99) 154 mg/dL (70-99) Calcium Level 8.1 mg/dL (8.5-10.1) 8.8 mg/dL (8.5-10.1) Total Bilirubin 0.4 mg/dL (0.2-1.0) Aspartate Amino Transf (AST/SGOT) 17 U/L (15-37) Alanine Aminotransferase (ALT/SGPT) 27 U/L (14-59) Alkaline Phosphatase 72 U/L (46-116) Total Protein 7.9 g/dL (6.4-8.2) Albumin 3.1 g/dL (3.4-5.0) Albumin/Globulin Ratio 0.6 (1.0-1.7) Glucose (Fingerstick) 302 mg/dL (70-99) 146 mg/dL (70-99) Test 03/08/17 09:45 Glucose (Fingerstick) 280 mg/dL (70-99) Images Images Impression: Exam is positive for deep vein thrombosis throughout the right lower extremity. Left lower extremity is negative for DVT. FANNY OLEA MD Mar 08, 2017 11:44
[2017-03-08] MEDS ORDERED: MAGNESIUM SULFATE 2GM 50 ML IV PRN (11:45)
--- NOTE | 2017-03-08 12:19 | CONS ---
DATE OF CONSULTATION: PRIMARY PHYSICIAN: Dr. Areli Cross. REASON FOR CONSULTATION: ESRD, dialysis. HISTORY OF PRESENT ILLNESS: The patient is a 67-year-old female with past medical history as outlined in my electronic consult note. She was at dialysis yesterday and was noted to have a right lower extremity that looked much bigger and swollen than her left lower extremity. She finished her dialysis without any complaints and was sent to the ER to rule out DVT. She did get lower extremity Dopplers and was found to have an extensive right lower extremity DVT. The patient claims she is asymptomatic. She had not even noticed swelling in the right lower extremity and does not know how long it has been there. This was pointed out to her by her dialysis nurse. In this setting, she was admitted to the hospital and is currently on anticoagulation. She denies having missed any dialysis. The patient is known to have intradialytic hypotension and is on midodrine; however, she is also noted to be on numerous blood pressure medications. I will stop her midodrine and Norvasc for the time being and reevaluate her on dialysis tomorrow. Her last EF was adequate despite a history of CHF. It is unclear to me if she has diastolic dysfunction. For rest of details, see electronic records. FANNY OLEA MD DR: ANAHI/nohemi JOB#: [id number] / [id number]
--- NOTE | 2017-03-08 12:38 | PDOC ---
PROGRESS NOTES Chief Complaint Chief Complaint 1. New right femoral vein DVT 2. LIMITED mobility, weakness and debility 3. ESRD on HD TTHSAT 4. HTN, COPD, DM all chronic stable 5. hypotension, disequilibrium with hemodialysis, renal adjusting med,s History of Present Illness History of Present Illness PT/OT, doing OK, pain OK Ambulate AD mariajose DC tele hypotension, renal altering meds, plan to DC tomorrow if cont improve, Vitals Vitals Vital Signs Date Time Temp Pulse Resp B/P (MAP) Pulse Ox O2 Delivery O2 Flow Rate FiO2 03/08/17 11:00 98.1 77 20 95/34 (54) 97 Room Air 98.1 Physical Exam General: Alert, Oriented X3, Cooperative, No acute distress Lungs: Clear Abdomen: Normal bowel sounds, Soft, No tenderness, No hepatosplenomegaly, No masses Extremities: Other (redness, swelling, tigtness, no tenderness rt calf and thigh compared to left) Skin: No rashes Labs LABS Laboratory Tests Test 03/07/17 14:06 03/07/17 18:07 03/07/17 22:57 03/08/17 04:26 White Blood Count 4.9 x10^3/uL (4.0-11.0) 5.2 x10^3/uL (4.0-11.0) Red Blood Count 3.25 x10^6/uL (3.50-5.40) 3.10 x10^6/uL (3.50-5.40) Hemoglobin 10.3 g/dL (12.0-15.5) 10.0 g/dL (12.0-15.5) Hematocrit 30.3 % (36.0-47.0) 29.1 % (36.0-47.0) Mean Corpuscular Volume 94 fL (79-100) 94 fL (79-100) Mean Corpuscular Hemoglobin 32 pg (25-35) 32 pg (25-35) Mean Corpuscular Hemoglobin Concent 34 g/dL (31-37) 34 g/dL (31-37) Red Cell Distribution Width 14.7 % (11.5-14.5) 14.9 % (11.5-14.5) Platelet Count 191 x10^3/uL (140-400) 185 x10^3/uL (140-400) Neutrophils (%) (Auto) 53 % (31-73) 42 % (31-73) Lymphocytes (%) (Auto) 33 % (24-48) 43 % (24-48) Monocytes (%) (Auto) 12 % (0-9) 11 % (0-9) Eosinophils (%) (Auto) 2 % (0-3) 3 % (0-3) Basophils (%) (Auto) 1 % (0-3) 1 % (0-3) Neutrophils # (Auto) 2.6 x10^3uL (1.8-7.7) 2.2 x10^3uL (1.8-7.7) Lymphocytes # (Auto) 1.6 x10^3/uL (1.0-4.8) 2.2 x10^3/uL (1.0-4.8) Monocytes # (Auto) 0.6 x10^3/uL (0.0-1.1) 0.6 x10^3/uL (0.0-1.1) Eosinophils # (Auto) 0.1 x10^3/uL (0.0-0.7) 0.2 x10^3/uL (0.0-0.7) Basophils # (Auto) 0.1 x10^3/uL (0.0-0.2) 0.1 x10^3/uL (0.0-0.2) Prothrombin Time 12.7 SEC (11.7-14.0) Prothromb Time International Ratio 1.0 (0.8-1.1) Sodium Level 139 mmol/L (136-145) 136 mmol/L (136-145) Potassium Level 3.5 mmol/L (3.5-5.1) 3.6 mmol/L (3.5-5.1) Chloride Level 99 mmol/L (98-107) 98 mmol/L (98-107) Carbon Dioxide Level 33 mmol/L (21-32) 33 mmol/L (21-32) Anion Gap 7 (6-14) 5 (6-14) Blood Urea Nitrogen 10 mg/dL (7-20) 20 mg/dL (7-20) Creatinine 3.0 mg/dL (0.6-1.0) 4.6 mg/dL (0.6-1.0) Estimated GFR (Cockcroft-Gault) 15.6 9.5 BUN/Creatinine Ratio 3 (6-20) Glucose Level 174 mg/dL (70-99) 154 mg/dL (70-99) Calcium Level 8.1 mg/dL (8.5-10.1) 8.8 mg/dL (8.5-10.1) Total Bilirubin 0.4 mg/dL (0.2-1.0) Aspartate Amino Transf (AST/SGOT) 17 U/L (15-37) Alanine Aminotransferase (ALT/SGPT) 27 U/L (14-59) Alkaline Phosphatase 72 U/L (46-116) Total Protein 7.9 g/dL (6.4-8.2) Albumin 3.1 g/dL (3.4-5.0) Albumin/Globulin Ratio 0.6 (1.0-1.7) Glucose (Fingerstick) 302 mg/dL (70-99) 146 mg/dL (70-99) Test 03/08/17 09:45 03/08/17 11:40 Glucose (Fingerstick) 280 mg/dL (70-99) 202 mg/dL (70-99) Assessment and Plan Assessmemt and Plan Problems Medical Problems: (1) DVT (deep venous thrombosis) Status: Acute Problems: Comment Review of Relevant I have reviewed the following items annabella (where applicable) has been applied. Labs Laboratory Tests Test 03/07/17 14:06 03/07/17 18:07 03/07/17 22:57 03/08/17 04:26 White Blood Count 4.9 x10^3/uL (4.0-11.0) 5.2 x10^3/uL (4.0-11.0) Red Blood Count 3.25 x10^6/uL (3.50-5.40) 3.10 x10^6/uL (3.50-5.40) Hemoglobin 10.3 g/dL (12.0-15.5) 10.0 g/dL (12.0-15.5) Hematocrit 30.3 % (36.0-47.0) 29.1 % (36.0-47.0) Mean Corpuscular Volume 94 fL (79-100) 94 fL (79-100) Mean Corpuscular Hemoglobin 32 pg (25-35) 32 pg (25-35) Mean Corpuscular Hemoglobin Concent 34 g/dL (31-37) 34 g/dL (31-37) Red Cell Distribution Width 14.7 % (11.5-14.5) 14.9 % (11.5-14.5) Platelet Count 191 x10^3/uL (140-400) 185 x10^3/uL (140-400) Neutrophils (%) (Auto) 53 % (31-73) 42 % (31-73) Lymphocytes (%) (Auto) 33 % (24-48) 43 % (24-48) Monocytes (%) (Auto) 12 % (0-9) 11 % (0-9) Eosinophils (%) (Auto) 2 % (0-3) 3 % (0-3) Basophils (%) (Auto) 1 % (0-3) 1 % (0-3) Neutrophils # (Auto) 2.6 x10^3uL (1.8-7.7) 2.2 x10^3uL (1.8-7.7) Lymphocytes # (Auto) 1.6 x10^3/uL (1.0-4.8) 2.2 x10^3/uL (1.0-4.8) Monocytes # (Auto) 0.6 x10^3/uL (0.0-1.1) 0.6 x10^3/uL (0.0-1.1) Eosinophils # (Auto) 0.1 x10^3/uL (0.0-0.7) 0.2 x10^3/uL (0.0-0.7) Basophils # (Auto) 0.1 x10^3/uL (0.0-0.2) 0.1 x10^3/uL (0.0-0.2) Prothrombin Time 12.7 SEC (11.7-14.0) Prothromb Time International Ratio 1.0 (0.8-1.1) Sodium Level 139 mmol/L (136-145) 136 mmol/L (136-145) Potassium Level 3.5 mmol/L (3.5-5.1) 3.6 mmol/L (3.5-5.1) Chloride Level 99 mmol/L (98-107) 98 mmol/L (98-107) Carbon Dioxide Level 33 mmol/L (21-32) 33 mmol/L (21-32) Anion Gap 7 (6-14) 5 (6-14) Blood Urea Nitrogen 10 mg/dL (7-20) 20 mg/dL (7-20) Creatinine 3.0 mg/dL (0.6-1.0) 4.6 mg/dL (0.6-1.0) Estimated GFR (Cockcroft-Gault) 15.6 9.5 BUN/Creatinine Ratio 3 (6-20) Glucose Level 174 mg/dL (70-99) 154 mg/dL (70-99) Calcium Level 8.1 mg/dL (8.5-10.1) 8.8 mg/dL (8.5-10.1) Total Bilirubin 0.4 mg/dL (0.2-1.0) Aspartate Amino Transf (AST/SGOT) 17 U/L (15-37) Alanine Aminotransferase (ALT/SGPT) 27 U/L (14-59) Alkaline Phosphatase 72 U/L (46-116) Total Protein 7.9 g/dL (6.4-8.2) Albumin 3.1 g/dL (3.4-5.0) Albumin/Globulin Ratio 0.6 (1.0-1.7) Glucose (Fingerstick) 302 mg/dL (70-99) 146 mg/dL (70-99) Test 03/08/17 09:45 03/08/17 11:40 Glucose (Fingerstick) 280 mg/dL (70-99) 202 mg/dL (70-99) Laboratory Tests Test 03/07/17 14:06 03/07/17 18:07 03/07/17 22:57 03/08/17 04:26 White Blood Count 4.9 x10^3/uL (4.0-11.0) 5.2 x10^3/uL (4.0-11.0) Red Blood Count 3.25 x10^6/uL (3.50-5.40) 3.10 x10^6/uL (3.50-5.40) Hemoglobin 10.3 g/dL (12.0-15.5) 10.0 g/dL (12.0-15.5) Hematocrit 30.3 % (36.0-47.0) 29.1 % (36.0-47.0) Mean Corpuscular Volume 94 fL (79-100) 94 fL (79-100) Mean Corpuscular Hemoglobin 32 pg (25-35) 32 pg (25-35) Mean Corpuscular Hemoglobin Concent 34 g/dL (31-37) 34 g/dL (31-37) Red Cell Distribution Width 14.7 % (11.5-14.5) 14.9 % (11.5-14.5) Platelet Count 191 x10^3/uL (140-400) 185 x10^3/uL (140-400) Neutrophils (%) (Auto) 53 % (31-73) 42 % (31-73) Lymphocytes (%) (Auto) 33 % (24-48) 43 % (24-48) Monocytes (%) (Auto) 12 % (0-9) 11 % (0-9) Eosinophils (%) (Auto) 2 % (0-3) 3 % (0-3) Basophils (%) (Auto) 1 % (0-3) 1 % (0-3) Neutrophils # (Auto) 2.6 x10^3uL (1.8-7.7) 2.2 x10^3uL (1.8-7.7) Lymphocytes # (Auto) 1.6 x10^3/uL (1.0-4.8) 2.2 x10^3/uL (1.0-4.8) Monocytes # (Auto) 0.6 x10^3/uL (0.0-1.1) 0.6 x10^3/uL (0.0-1.1) Eosinophils # (Auto) 0.1 x10^3/uL (0.0-0.7) 0.2 x10^3/uL (0.0-0.7) Basophils # (Auto) 0.1 x10^3/uL (0.0-0.2) 0.1 x10^3/uL (0.0-0.2) Prothrombin Time 12.7 SEC (11.7-14.0) Prothromb Time International Ratio 1.0 (0.8-1.1) Sodium Level 139 mmol/L (136-145) 136 mmol/L (136-145) Potassium Level 3.5 mmol/L (3.5-5.1) 3.6 mmol/L (3.5-5.1) Chloride Level 99 mmol/L (98-107) 98 mmol/L (98-107) Carbon Dioxide Level 33 mmol/L (21-32) 33 mmol/L (21-32) Anion Gap 7 (6-14) 5 (6-14) Blood Urea Nitrogen 10 mg/dL (7-20) 20 mg/dL (7-20) Creatinine 3.0 mg/dL (0.6-1.0) 4.6 mg/dL (0.6-1.0) Estimated GFR (Cockcroft-Gault) 15.6 9.5 BUN/Creatinine Ratio 3 (6-20) Glucose Level 174 mg/dL (70-99) 154 mg/dL (70-99) Calcium Level 8.1 mg/dL (8.5-10.1) 8.8 mg/dL (8.5-10.1) Total Bilirubin 0.4 mg/dL (0.2-1.0) Aspartate Amino Transf (AST/SGOT) 17 U/L (15-37) Alanine Aminotransferase (ALT/SGPT) 27 U/L (14-59) Alkaline Phosphatase 72 U/L (46-116) Total Protein 7.9 g/dL (6.4-8.2) Albumin 3.1 g/dL (3.4-5.0) Albumin/Globulin Ratio 0.6 (1.0-1.7) Glucose (Fingerstick) 302 mg/dL (70-99) 146 mg/dL (70-99) Test 03/08/17 09:45 03/08/17 11:40 Glucose (Fingerstick) 280 mg/dL (70-99) 202 mg/dL (70-99) Medications Current Medications Heparin Sodium (Porcine) (Heparin Sodium) 7,500 unit 1X ONCE IV Last administered on 03/07/17 14:50; Start 03/07/17 at 14:45; Stop 03/07/17 at 14 :46; Status DC Heparin Sodium/ Dextrose 500 ml @ 0 mls/hr CONT PRN IV SEE I/O RECORD Last administered on 03/07/17 14:52; Start 03/07/17 at 15:00; Stop 03/07/17 at 16 :59; Status DC Heparin Sodium (Porcine) (Heparin Sodium) 2,800 unit PRN Q6HRS PRN IV FOR UFH LEVEL LESS THAN 0.2; Start 03/07/17 at 15:00; Stop 03/07/17 at 15:16; Status DC Heparin Sodium (Porcine) (Heparin Sodium) 1,400 unit PRN Q6HRS PRN IV FOR UFH LEVEL 0.2 - 0.29; Start 03/07/17 at 15:00; Stop 03/07/17 at 15:16; Status DC Warfarin Sodium (Coumadin Per Pharmacy) 1 each PRN DAILY PRN MC PER PROTOCOL; Start 03/07/17 at 14:30; Status Cancel Ondansetron HCl (Zofran) 4 mg PRN Q8HRS PRN IV NAUSEA/VOMITING; Start at 14:45; Stop 03/07/17 at 14:58; Status DC Ondansetron HCl (Zofran) 4 mg PRN Q6HRS PRN IV NAUSEA/VOMITING; Start at 15:00; Stop 03/08/17 at 14:59 Rivaroxaban (Xarelto) 15 mg BIDWMEALS PO Last administered on 03/08/17 09:16 ; Start 03/07/17 at 17:00; Stop 03/27/17 at 17:01 Amlodipine Besylate (Norvasc) 10 mg DAILY PO ; Start 03/08/17 at 09:00; Stop 03/08/17 at 11:41; Status DC Ondansetron HCl (Zofran Odt) 4 mg PRN Q8HRS PRN PO NAUSEA/VOMITING; Start at 15:00 Rivaroxaban (Xarelto) 20 mg DAILYWSUP PO ; Start 03/28/17 at 17:00 Insulin Aspart (NovoLOG) 0-9 UNITS TIDWMEALS SQ ; Start 03/08/17 at 08:00; Stop 03/08/17 at 08:00; Status DC Dextrose (Dextrose 50%-Water Syringe) 12.5 gm PRN Q15MIN PRN IV SEE COMMENTS; Start 03/07/17 at 18:15 Atorvastatin Calcium (Lipitor) 10 mg QHS PO Last administered on 03/07/17t 20: 53; Start 03/07/17 at 21:00 Carvedilol (Coreg) 6.25 mg HS PO Last administered on 03/07/17 20:54; Start 03/07/17 at 21:00 Furosemide (Lasix) 80 mg BID94 PO Last administered on 03/07/17 20:53; Start 03/07/17 at 21:00 Lisinopril (Prinivil) 20 mg HS PO Last administered on 03/07/17 20:54; Start 03/07/17 at 21:00 Midodrine (Proamatine) 5 mg DAILY PO Last administered on 03/08/17 09:20; Start 03/08/17 at 09:00; Stop 03/08/17 at 11:41; Status DC Calcium Carbonate/ Glycine (Tums) 1,000 mg QHS PO Last administered on 09:21; Start 03/07/17 at 21:00 Insulin Detemir (Levemir) 20 units DAILY SQ ; Start 03/08/17 at 09:00; Stop at 09:00; Status DC Insulin Aspart (NovoLOG) 0-9 UNITS TIDWMEALS SQ Last administered on 12:30; Start 03/07/17 at 19:00 Insulin Detemir (Levemir) 20 units QHS SQ Last administered on 03/07/17 23:01 ; Start 03/07/17 at 22:30 Magnesium Sulfate/ Dextrose 50 ml @ 25 mls/hr PRN DAILY PRN IV for Mag < 1.7 on am labs; Start 03/08/17 at 11:45 Active Scripts Active Reported Tums (Calcium Carbonate) 300 Mg Tab.chew 2 Mg PO HS Lipitor (Atorvastatin Calcium) 10 Mg Tablet 1 Tab PO QHS Midodrine Hcl 5 Mg Tablet 5 Mg PO Lisinopril 20 Mg Tablet 1 Tab PO HS Lasix (Furosemide) 80 Mg Tablet 80 Mg PO BID Lantus Solostar (Insulin Glargine,Hum.rec.anlog) 100 Unit/1 Ml Insuln.pen 20 Unit SQ DAILY Carvedilol 6.25 Mg Tablet 6.25 Mg PO HS Norvasc (Amlodipine Besylate) 5 Mg Tablet 10 Mg PO DAILY Vitals/I & O Vital Sign - Last 24 Hours 03/07/17 03/07/17 03/07/17 03/07/17 12:52 14:04 14:35 15:05 Pulse 80 80 76 78 Resp 14 20 18 18 B/P (MAP) 153/66 (95) 169/69 (102) 156/67 (96) 156/67 (96) Pulse Ox 94 94 95 95 O2 Delivery Room Air Room Air Room Air Room Air 03/07/17 03/07/17 03/07/17 03/07/17 15:38 16:05 18:52 19:00 Temp 97.9 97.0 97.9 97.0 Pulse 78 87 85 84 Resp 18 20 18 18 B/P (MAP) 174/72 (106) 164/67 (99) 98/62 (74) 165/64 (97) Pulse Ox 96 95 94 95 O2 Delivery Room Air Room Air Room Air 03/07/17 03/07/17 03/07/17 03/07/17 20:00 20:54 20:54 23:00 Temp 97.9 97.9 Pulse 84 84 70 Resp 18 B/P (MAP) 165/64 165/64 122/47 (72) Pulse Ox 92 O2 Delivery Room Air Room Air 03/08/17 03/08/17 03/08/17 03/08/17 03:00 07:00 09:20 11:00 Temp 97.7 97.7 98.1 97.7 97.7 98.1 Pulse 64 70 56 77 Resp 18 20 20 B/P (MAP) 147/47 (80) 109/30 (56) 109/30 95/34 (54) Pulse Ox 94 95 97 O2 Delivery Room Air Room Air Room Air CORAZON LIRIANO MD Mar 08, 2017 12:38
--- NOTE | 2017-03-08 14:12 | RAD ---
2 Views of the Chest 03/08/2017 1:38 PM Indication: History of congestive failure. Shortness of breath Comparison: Chest radiograph June 14, 2016 Findings: There is no pneumothorax. There is no evidence of pleural effusion. Elevation of the right hemidiaphragm is similar to prior study. Diffuse interstitial coarsening is similar prior exam. Heart size is top normal, but stable. Aortic calcification is unchanged. Right upper lobe scarring appears to be similar. No new focal consolidation is identified. Impression: No evidence of acute cardiopulmonary process or acute change from comparison study.
[2017-03-08] MEDS ORDERED: DIALYSIS PATIENT. MC PRN (14:15)
[2017-03-08 15:00] VITALS: BP 123/41
[2017-03-08 19:00] VITALS: BP 160/60
[2017-03-08] MEDS: ATORVASTATIN CALCIUM 10 MG TABLET. PO SCH (22:39)
[2017-03-08] MEDS: CARVEDILOL 6.25 MG TABLET. PO SCH (22:40)
[2017-03-08] MEDS: LISINOPRIL 20 MG TABLET PO SCH (22:40)
[2017-03-08] MEDS: INSULIN DETEMIR 300 UNITS/3 ML INSULN.PEN. SQ SCH (22:44)
[2017-03-08 23:10] VITALS: BP 136/47
[2017-03-09 03:00] VITALS: BP 137/80
[2017-03-09 05:50] LABS: HEMATOCRIT 27.1 % (36.0-47.0); HEMOGLOBIN 9.3 g/dL (12.0-15.5); RED BLOOD COUNT 2.88 x10^6/uL (3.50-5.40); RED CELL DISTRIBUTION WIDTH 14.7 % (11.5-14.5); WHITE BLOOD COUNT 5.3 x10^3/uL (4.0-11.0)
[2017-03-09 06:10] LABS: ALBUMIN 2.7 g/dL (3.4-5.0); CALCIUM 8.7 mg/dL (8.5-10.1); PHOSPHORUS 4.3 mg/dL (2.6-4.7); POTASSIUM 4.1 mmol/L (3.5-5.1)
[2017-03-09 07:20] VITALS: BP 142/51
[2017-03-09] MEDS: FUROSEMIDE 80 MG TABLET. PO SCH ×2 (08:12→17:27)
[2017-03-09] MEDS: RIVAROXABAN 15 MG TABLET. PO SCH ×2 (08:12→17:27)
[2017-03-09] MEDS: INSULIN ASPART 300 UNITS/3 ML INSULN.PEN SQ SCH ×3 (08:15→17:33)
--- NOTE | 2017-03-09 09:06 | PDOC ---
Provider Note Provider Note Hem-Onc consult 1. DVT due to inactivity. Agree with anticoagulation. f/u with PCP 2. Anemia due to ESRD. Ok to use epogen but avoid if Hb >10 or Hct >30 to prevent risk of thrombotic events. See dictation ERNESTINE BRIONES MD Mar 09, 2017 09:06
--- NOTE | 2017-03-09 09:55 | PDOC ---
Dialysis Progress Note Dialysis Note Dialysis Note Seen on Hemodialysis, tolerating treatment Well so far Vitals on Hemodialysis: 155/69 67 afeb General Appearance: Awake: Alert Oriented x 3 Neck: No JVD or JVP Chest: CTA Lenny Heart: S1 S2 Abdomen - Soft NTND Extremities - + Edema Rt low ext ESRD: Dialysis as below F 180 NR 3.5 Hrs 3 K 2.5 Ca 140 Na 30 HC03 Qb 350 + Qd 500+ Heparin 0 Units Uf 3 Kgs or to dry weight as tolerated May give 25-50 gms of 25% Albumin if needed to maintain Hemodynamic stability Treatment plan reviewed and discussed with mri supervisor Vitals Vital Signs Vital Signs Date Time Temp Pulse Resp B/P (MAP) Pulse Ox O2 Delivery O2 Flow Rate FiO2 03/09/17 07:20 97.9 73 18 142/51 (81) 93 Room Air 97.9 Labs Last Labs Laboratory Tests Test 03/07/17 14:06 03/07/17 18:07 03/07/17 22:57 03/08/17 04:26 White Blood Count 4.9 x10^3/uL (4.0-11.0) 5.2 x10^3/uL (4.0-11.0) Red Blood Count 3.25 x10^6/uL (3.50-5.40) 3.10 x10^6/uL (3.50-5.40) Hemoglobin 10.3 g/dL (12.0-15.5) 10.0 g/dL (12.0-15.5) Hematocrit 30.3 % (36.0-47.0) 29.1 % (36.0-47.0) Mean Corpuscular Volume 94 fL (79-100) 94 fL (79-100) Mean Corpuscular Hemoglobin 32 pg (25-35) 32 pg (25-35) Mean Corpuscular Hemoglobin Concent 34 g/dL (31-37) 34 g/dL (31-37) Red Cell Distribution Width 14.7 % (11.5-14.5) 14.9 % (11.5-14.5) Platelet Count 191 x10^3/uL (140-400) 185 x10^3/uL (140-400) Neutrophils (%) (Auto) 53 % (31-73) 42 % (31-73) Lymphocytes (%) (Auto) 33 % (24-48) 43 % (24-48) Monocytes (%) (Auto) 12 % (0-9) 11 % (0-9) Eosinophils (%) (Auto) 2 % (0-3) 3 % (0-3) Basophils (%) (Auto) 1 % (0-3) 1 % (0-3) Neutrophils # (Auto) 2.6 x10^3uL (1.8-7.7) 2.2 x10^3uL (1.8-7.7) Lymphocytes # (Auto) 1.6 x10^3/uL (1.0-4.8) 2.2 x10^3/uL (1.0-4.8) Monocytes # (Auto) 0.6 x10^3/uL (0.0-1.1) 0.6 x10^3/uL (0.0-1.1) Eosinophils # (Auto) 0.1 x10^3/uL (0.0-0.7) 0.2 x10^3/uL (0.0-0.7) Basophils # (Auto) 0.1 x10^3/uL (0.0-0.2) 0.1 x10^3/uL (0.0-0.2) Prothrombin Time 12.7 SEC (11.7-14.0) Prothromb Time International Ratio 1.0 (0.8-1.1) Sodium Level 139 mmol/L (136-145) 136 mmol/L (136-145) Potassium Level 3.5 mmol/L (3.5-5.1) 3.6 mmol/L (3.5-5.1) Chloride Level 99 mmol/L (98-107) 98 mmol/L (98-107) Carbon Dioxide Level 33 mmol/L (21-32) 33 mmol/L (21-32) Anion Gap 7 (6-14) 5 (6-14) Blood Urea Nitrogen 10 mg/dL (7-20) 20 mg/dL (7-20) Creatinine 3.0 mg/dL (0.6-1.0) 4.6 mg/dL (0.6-1.0) Estimated GFR (Cockcroft-Gault) 15.6 9.5 BUN/Creatinine Ratio 3 (6-20) Glucose Level 174 mg/dL (70-99) 154 mg/dL (70-99) Calcium Level 8.1 mg/dL (8.5-10.1) 8.8 mg/dL (8.5-10.1) Total Bilirubin 0.4 mg/dL (0.2-1.0) Aspartate Amino Transf (AST/SGOT) 17 U/L (15-37) Alanine Aminotransferase (ALT/SGPT) 27 U/L (14-59) Alkaline Phosphatase 72 U/L (46-116) Total Protein 7.9 g/dL (6.4-8.2) Albumin 3.1 g/dL (3.4-5.0) Albumin/Globulin Ratio 0.6 (1.0-1.7) Glucose (Fingerstick) 302 mg/dL (70-99) 146 mg/dL (70-99) Test 03/08/17 09:45 03/08/17 11:40 03/08/17 16:30 03/08/17 20:53 Glucose (Fingerstick) 280 mg/dL (70-99) 202 mg/dL (70-99) 167 mg/dL (70-99) 173 mg/dL (70-99) Test 03/09/17 05:20 White Blood Count 5.3 x10^3/uL (4.0-11.0) Red Blood Count 2.88 x10^6/uL (3.50-5.40) Hemoglobin 9.3 g/dL (12.0-15.5) Hematocrit 27.1 % (36.0-47.0) Mean Corpuscular Volume 94 fL (79-100) Mean Corpuscular Hemoglobin 32 pg (25-35) Mean Corpuscular Hemoglobin Concent 34 g/dL (31-37) Red Cell Distribution Width 14.7 % (11.5-14.5) Platelet Count 176 x10^3/uL (140-400) Sodium Level 134 mmol/L (136-145) Potassium Level 4.1 mmol/L (3.5-5.1) Chloride Level 96 mmol/L (98-107) Carbon Dioxide Level 30 mmol/L (21-32) Anion Gap 8 (6-14) Blood Urea Nitrogen 33 mg/dL (7-20) Creatinine 6.0 mg/dL (0.6-1.0) Estimated GFR (Cockcroft-Gault) 7.0 Glucose Level 182 mg/dL (70-99) Calcium Level 8.7 mg/dL (8.5-10.1) Phosphorus Level 4.3 mg/dL (2.6-4.7) Magnesium Level 2.0 mg/dL (1.8-2.4) Albumin 2.7 g/dL (3.4-5.0) Laboratory Tests Test 03/08/17 11:40 03/08/17 16:30 03/08/17 20:53 03/09/17 05:20 Glucose (Fingerstick) 202 mg/dL (70-99) 167 mg/dL (70-99) 173 mg/dL (70-99) White Blood Count 5.3 x10^3/uL (4.0-11.0) Red Blood Count 2.88 x10^6/uL (3.50-5.40) Hemoglobin 9.3 g/dL (12.0-15.5) Hematocrit 27.1 % (36.0-47.0) Mean Corpuscular Volume 94 fL (79-100) Mean Corpuscular Hemoglobin 32 pg (25-35) Mean Corpuscular Hemoglobin Concent 34 g/dL (31-37) Red Cell Distribution Width 14.7 % (11.5-14.5) Platelet Count 176 x10^3/uL (140-400) Sodium Level 134 mmol/L (136-145) Potassium Level 4.1 mmol/L (3.5-5.1) Chloride Level 96 mmol/L (98-107) Carbon Dioxide Level 30 mmol/L (21-32) Anion Gap 8 (6-14) Blood Urea Nitrogen 33 mg/dL (7-20) Creatinine 6.0 mg/dL (0.6-1.0) Estimated GFR (Cockcroft-Gault) 7.0 Glucose Level 182 mg/dL (70-99) Calcium Level 8.7 mg/dL (8.5-10.1) Phosphorus Level 4.3 mg/dL (2.6-4.7) Magnesium Level 2.0 mg/dL (1.8-2.4) Albumin 2.7 g/dL (3.4-5.0) Assessment Assessment Problems Medical Problems: (1) DVT (deep venous thrombosis) Status: Acute Problems: Plan Plan of Care Problems Medical Problems: (1) DVT (deep venous thrombosis) Status: Acute FANNY OLEA MD Mar 09, 2017 09:55
[2017-03-09] MEDS ORDERED: IV NORMAL SALINE 1000ML BAG 1,000 ML IV PRN ×2 (11:27)
[2017-03-09] MEDS ORDERED: DIALYSIS PATIENT. MC PRN ×2 (11:30)
[2017-03-09] MEDS ORDERED: RIVA15TA PO (12:00)
[2017-03-09 14:31] VITALS: BP 102/44
--- NOTE | 2017-03-09 14:43 | PDOC3 ---
Discharge Summary Visit Information Date of Admission: Mar 07, 2017 Date of Discharge: Mar 09, 2017 Admitting Diagnosis: leg pain Final Diagnosis 1. RT superficial femoral vein DVT 2. LIMITED mobility 3. ESRD on HD TTHSAT 4. HTN, COPD, DM all chronic stable Problems Medical Problems: (1) DVT (deep venous thrombosis) Status: Acute Brief Hospital Course Allergies Allergies Coded Allergies Type Severity Reaction Last Updated Verified No Known Drug Allergies 09/07/15 No Vital Signs Vital Signs Date Time Temp Pulse Resp B/P (MAP) Pulse Ox O2 Delivery O2 Flow Rate FiO2 03/09/17 14:31 97.8 75 18 102/44 (63) 98 Room Air 97.8 Lab Results Laboratory Tests Test 03/07/17 18:07 03/07/17 22:57 03/08/17 04:26 03/08/17 09:45 Glucose (Fingerstick) 302 mg/dL (70-99) 146 mg/dL (70-99) 280 mg/dL (70-99) White Blood Count 5.2 x10^3/uL (4.0-11.0) Red Blood Count 3.10 x10^6/uL (3.50-5.40) Hemoglobin 10.0 g/dL (12.0-15.5) Hematocrit 29.1 % (36.0-47.0) Mean Corpuscular Volume 94 fL (79-100) Mean Corpuscular Hemoglobin 32 pg (25-35) Mean Corpuscular Hemoglobin Concent 34 g/dL (31-37) Red Cell Distribution Width 14.9 % (11.5-14.5) Platelet Count 185 x10^3/uL (140-400) Neutrophils (%) (Auto) 42 % (31-73) Lymphocytes (%) (Auto) 43 % (24-48) Monocytes (%) (Auto) 11 % (0-9) Eosinophils (%) (Auto) 3 % (0-3) Basophils (%) (Auto) 1 % (0-3) Neutrophils # (Auto) 2.2 x10^3uL (1.8-7.7) Lymphocytes # (Auto) 2.2 x10^3/uL (1.0-4.8) Monocytes # (Auto) 0.6 x10^3/uL (0.0-1.1) Eosinophils # (Auto) 0.2 x10^3/uL (0.0-0.7) Basophils # (Auto) 0.1 x10^3/uL (0.0-0.2) Sodium Level 136 mmol/L (136-145) Potassium Level 3.6 mmol/L (3.5-5.1) Chloride Level 98 mmol/L (98-107) Carbon Dioxide Level 33 mmol/L (21-32) Anion Gap 5 (6-14) Blood Urea Nitrogen 20 mg/dL (7-20) Creatinine 4.6 mg/dL (0.6-1.0) Estimated GFR (Cockcroft-Gault) 9.5 Glucose Level 154 mg/dL (70-99) Calcium Level 8.8 mg/dL (8.5-10.1) Test 03/08/17 11:40 03/08/17 16:30 03/08/17 20:53 03/09/17 05:20 Glucose (Fingerstick) 202 mg/dL (70-99) 167 mg/dL (70-99) 173 mg/dL (70-99) White Blood Count 5.3 x10^3/uL (4.0-11.0) Red Blood Count 2.88 x10^6/uL (3.50-5.40) Hemoglobin 9.3 g/dL (12.0-15.5) Hematocrit 27.1 % (36.0-47.0) Mean Corpuscular Volume 94 fL (79-100) Mean Corpuscular Hemoglobin 32 pg (25-35) Mean Corpuscular Hemoglobin Concent 34 g/dL (31-37) Red Cell Distribution Width 14.7 % (11.5-14.5) Platelet Count 176 x10^3/uL (140-400) Sodium Level 134 mmol/L (136-145) Potassium Level 4.1 mmol/L (3.5-5.1) Chloride Level 96 mmol/L (98-107) Carbon Dioxide Level 30 mmol/L (21-32) Anion Gap 8 (6-14) Blood Urea Nitrogen 33 mg/dL (7-20) Creatinine 6.0 mg/dL (0.6-1.0) Estimated GFR (Cockcroft-Gault) 7.0 Glucose Level 182 mg/dL (70-99) Calcium Level 8.7 mg/dL (8.5-10.1) Phosphorus Level 4.3 mg/dL (2.6-4.7) Magnesium Level 2.0 mg/dL (1.8-2.4) Albumin 2.7 g/dL (3.4-5.0) Test 03/09/17 13:25 Glucose (Fingerstick) 105 mg/dL (70-99) Laboratory Tests Test 03/08/17 16:30 03/08/17 20:53 03/09/17 05:20 03/09/17 13:25 Glucose (Fingerstick) 167 mg/dL (70-99) 173 mg/dL (70-99) 105 mg/dL (70-99) White Blood Count 5.3 x10^3/uL (4.0-11.0) Red Blood Count 2.88 x10^6/uL (3.50-5.40) Hemoglobin 9.3 g/dL (12.0-15.5) Hematocrit 27.1 % (36.0-47.0) Mean Corpuscular Volume 94 fL (79-100) Mean Corpuscular Hemoglobin 32 pg (25-35) Mean Corpuscular Hemoglobin Concent 34 g/dL (31-37) Red Cell Distribution Width 14.7 % (11.5-14.5) Platelet Count 176 x10^3/uL (140-400) Sodium Level 134 mmol/L (136-145) Potassium Level 4.1 mmol/L (3.5-5.1) Chloride Level 96 mmol/L (98-107) Carbon Dioxide Level 30 mmol/L (21-32) Anion Gap 8 (6-14) Blood Urea Nitrogen 33 mg/dL (7-20) Creatinine 6.0 mg/dL (0.6-1.0) Estimated GFR (Cockcroft-Gault) 7.0 Glucose Level 182 mg/dL (70-99) Calcium Level 8.7 mg/dL (8.5-10.1) Phosphorus Level 4.3 mg/dL (2.6-4.7) Magnesium Level 2.0 mg/dL (1.8-2.4) Albumin 2.7 g/dL (3.4-5.0) Brief Hospital Course Ms. Diego is a 67 old admit with leg pain, DVT xarelto 15 BID x 7 days then 20 mg PO qdaily for 3-6 mos Heme consult was OK with this choice, may change out for other med for HD patient Discharge Information Condition at Discharge: Improved Follow Up: Weeks Disposition/Orders: D/C to Home Scheduled Amlodipine Besylate (Norvasc), 10 MG PO DAILY, (Reported) Atorvastatin Calcium (Lipitor), 1 TAB PO QHS, (Reported) Calcium Carbonate (Tums), 2 MG PO HS, (Reported) Carvedilol (Carvedilol), 6.25 MG PO HS, (Reported) Furosemide (Lasix), 80 MG PO BID, (Reported) Insulin Glargine,Hum.rec.anlog (Lantus Solostar), 20 UNIT SQ DAILY, (Reported) Lisinopril (Lisinopril), 1 TAB PO HS, (Reported) Rivaroxaban (Xarelto), 15 MG PO BIDWMEALS Miscellaneous Medications Midodrine Hcl (Midodrine Hcl), 5 MG PO, (Reported) Discontinued Medications Hydrocodone/Apap 5-325 (Dubach 5-325 Tablet), 1-2 TAB PO Q4-6HRS, (Reported) Discontinued Reason: not taking Insulin Aspart (Novolog), 0 SQ TID, (Reported) Discontinued Reason: not using Lisinopril (Lisinopril), 10 MG PO HS, (Reported) Discontinued Reason: Prescription changed Ondansetron (Zofran Odt), 1 TAB SL Q8HRS Discontinued Reason: not taking Patient Instructions Patient Instructions > 30 min face to face CORAZON Barnes MD Mar 09, 2017 14:43
--- NOTE | 2017-03-09 15:43 | CONS ---
DATE OF CONSULTATION: 03/09/2017 REQUESTING PHYSICIAN: Dr. Fanny Wolf. REASON FOR CONSULTATION: Use of Epogen in a patient with deep venous thrombosis in the right lower extremity. HISTORY OF PRESENT ILLNESS: The patient is a 67-year-old female who has history of end-stage renal disease and she is on hemodialysis. She is obese and she has limited mobility. She spends most of her time sitting at home or lying at home. While she was at hemodialysis, the staff noticed that her right leg was more swollen and red when compared to the left leg on 03/07/2017. She was subsequently sent to [facility]. She underwent a venous Doppler on 03/07/2017, which revealed deep vein thrombosis throughout the right lower extremity. No evidence of deep venous thrombosis in the left lower extremity. She was admitted to [facility] and started on heparin and subsequently Xarelto. She has not had any recent surgeries and no history of long car rides or plane rides. No history of hypercoagulable state. No family history of thromboembolic events. No chest pain, no shortness of breath. She gets Epogen during hemodialysis. Since Epogen can increase the risk of thromboembolic events, I was asked to give my recommendations regarding the use of Epogen in patients with deep venous thrombosis. PAST MEDICAL HISTORY: Congestive heart failure, hypertension, hyperlipidemia, bronchial asthma, chronic obstructive pulmonary disease, end-stage renal disease on hemodialysis, diabetes mellitus, hypothyroidism, depression, cholecystectomy, cataract surgery, tonsillectomy. FAMILY HISTORY: Negative for thromboembolic events. SOCIAL HISTORY: No smoking or alcohol abuse. REVIEW OF SYSTEMS: A 12-point review of systems was performed. Pertinent positives are mentioned in the history of present illness. Rest of the system review is negative. PHYSICAL EXAMINATION: GENERAL APPEARANCE: The patient is a 67-year-old female who is in no acute cardiorespiratory distress. VITAL SIGNS: Blood pressure 142/51, temperature 97.9. HEAD: Atraumatic, normocephalic. EYES: No icterus. NECK: Supple. CHEST: Bilaterally symmetrical. No crepitations or rhonchi heard. HEART: S1, S2 normal. ABDOMEN: Soft, nontender. CENTRAL NERVOUS SYSTEM: No focal deficits. LYMPHATICS: No lymphadenopathy. MUSCULOSKELETAL: She has right lower extremity edema more than the left side. LABORATORY DATA: WBC 5.3, hemoglobin 9.3, platelet count 176, hematocrit 27.1. Creatinine 6.0. IMPRESSION AND PLAN: 1. Anemia due to chronic kidney disease. She has been getting Epogen during hemodialysis. I was asked to see the patient because of history of deep venous thrombosis and recommendations regarding the use of Epogen. I have advised that she can resume Epogen, but I would recommend holding Epogen if her hemoglobin is equal or more than 10 or her hematocrit is equal to 30 or more than 30. The risk of thromboembolic events is higher if the hemoglobin or hematocrit is more than 10 and 30 respectively. 2. End-stage renal disease. She is on hemodialysis. 3. Deep venous thrombosis of the right lower extremity. I agree with ongoing anticoagulation. I have advised followup with her primary care physician for management of anticoagulation. ERNESTINE BRIONES MD DR: ESTELLE/nohemi JOB#: [id number] / [id number] FANNY Costa MD MTDD
[2017-03-28] MEDS ORDERED: RIVAROXABAN 10 MG TABLET. PO SCH (17:00)
== END 2017-03-09 17:43 | disposition home health service (06) | DRG 299 ==
LOC: ER 11:11 → ED HOLD 14:30 → 5 NORTH 15:52
PROVIDERS: ADMIT Internal Medicine; ATTEND Internal Medicine
PROC: 5A1D70Z Performance of Urinary Filtration, Intermittent, Less than 6 Hours Per Day (ICD-10-PCS; principal; 2017-03-09)
DX: I82.411 Acute embolism and thrombosis of right femoral vein (principal); N18.6 End stage renal disease; I13.2 Hypertensive heart and chronic kidney disease with heart failure and with stage 5 chronic kidney disease, or end stage renal disease; E11.22 Type 2 diabetes mellitus with diabetic chronic kidney disease; I95.3 Hypotension of hemodialysis; Z68.41 Body mass index [BMI] 40.0-44.9, adult; I50.9 Heart failure, unspecified; D63.1 Anemia in chronic kidney disease; E03.9 Hypothyroidism, unspecified; E11.69 Type 2 diabetes mellitus with other specified complication; E66.9 Obesity, unspecified; F32.9 Major depressive disorder, single episode, unspecified; E78.5 Hyperlipidemia, unspecified; J44.9 Chronic obstructive pulmonary disease, unspecified; Z86.718 Personal history of other venous thrombosis and embolism; Z99.2 Dependence on renal dialysis
CPT/HCPCS: 36415; 71020; 80048; 80053; 80069; 82962; 83735; 85025; 85027; 85610; 93970; 96365; J1644; J1815; 97535; 99285-25

== ENCOUNTER 2020-05-13 14:53 | Emergency (ER) | payer MEDICARE, MEDICAID ==
[~2020-05-13] VITALS: Ht 162.6 cm; Wt 78.4 kg
[~2020-05-13 14:53] MED LIST changes: +ATOR10TA PO; +CALC300T5 PO; +CARV6.2511 PO; -CARV6.252 PO; +EPINEPHrine SYRINGE 1 MG/10 ML SYRINGE ONE; +HYDR-3164 PO; +INSU100V31 SQ; +LISI-334 PO; +LISI10TA2 PO; +LOSA-73 PO; -LOSA50TA6 PO; +MIDO5TAB4 PO; +RIVA15TA PO; +SODIUM BICARB ADULT 8.4% 50 MEQ/50 ML DISP.SYRIN. ONE
--- NOTE | 2020-05-13 15:05 | ED.ADGEN ---
Past Medical History Past Medical History: COPD, Diabetes-Type II, High Cholesterol, Hypertension, Renal Failure Additional Past Medical Histor: hypoxia, dialysis Past Surgical History: Cholecystectomy, Hip Replacement, Other Additional Past Surgical Histo: dialysis shunt - left f.arm, tubal ligation Smoking Status: Never Smoker Alcohol Use: None Drug Use: None General Adult HPI: HPI: Patient is a 70 year old 70-year-old female who had a sudden onset of blurred vision and lightheadedness. Patient states she is lightheaded when she stands up. Patient has not been drinking water recently and not been drinking soda today. Has a history of diabetes and checked her blood glucose because she thought it was low. Blood glucose was in the 200s. States she chest "feels bad" but cannot identify any source, denies any fever, cough, shortness of breath, chest pain or heaviness, no change in urination. Patient has a history of high blood pressure and says she is compliant with her medications denies any use of diuretics. Review of Systems: Review of Systems: Negative other than stated in HPI Current Medications: Current Medications Medications (Trade) Dose Ordered Sig/Jordan Start Time Stop Time Status Last Admin Dose Admin Dobutamine HCl/ Dextrose 250 ml @ 4.704 mls/ hr 1X ONCE 05/13/20 16:15 05/15/20 21:23 05/13/20 16:35 4.704 MLS/HR Epinephrine HCl 5 mg/Sodium Chloride 255 ml @ 23.99 mls/ hr CONT PRN 05/13/20 15:45 Info (CONTRAST GIVEN -- Rx MONITORING) 1 each PRN DAILY PRN 05/13/20 16:15 05/15/20 16:14 Iohexol (Omnipaque 350 Mg/ml) 90 ml 1X ONCE 05/13/20 16:15 05/13/20 16:16 DC 05/13/20 16:37 90 ML Norepinephrine Bitartrate 8 mg/ Dextrose 258 ml @ 15.17 mls/ hr 1X ONCE 05/13/20 16:00 05/14/20 09:00 UNV Ondansetron HCl (Zofran) 4 mg 1X ONCE 05/13/20 15:30 05/13/20 15:32 DC 05/13/20 15:39 4 MG Sodium Chloride 1,000 ml @ 1,000 mls/hr 1X ONCE 05/13/20 15:45 05/13/20 16:44 DC 05/13/20 15:37 1,000 MLS/HR Allergies: Allergies: Allergies Coded Allergies Type Severity Reaction Last Updated Verified No Known Drug Allergies 09/07/15 No Physical Exam: PE: Constitutional: Well developed, well nourished, no acute distress, non-toxic appearance. [] HENT: Normocephalic, atraumatic, bilateral external ears normal, oropharynx moist, no oral exudates, nose normal. [] Eyes: PERRLA, EOMI, conjunctiva normal, no discharge. [] Neck: Normal range of motion, no tenderness, supple, no stridor. [] Cardiovascular:Heart rate regular rhythm, no murmur [] Lungs & Thorax: Bilateral breath sounds clear to auscultation [] Abdomen: Bowel sounds normal, soft, no tenderness, no masses, no pulsatile masses. [] Skin: Warm, dry, no erythema, no rash. [] Back: No tenderness, no CVA tenderness. [] Extremities: No tenderness, no cyanosis, no clubbing, ROM intact, no edema. [] Neurologic: Alert and oriented X 3, normal motor function, normal sensory function, no focal deficits noted. [] Psychologic: Affect normal, judgement normal, mood normal. [] Current Patient Data: Labs: Laboratory Tests Test 05/13/20 15:05 White Blood Count 6.7 x10^3/uL (4.0-11.0) Red Blood Count 3.33 x10^6/uL (3.50-5.40) L Hemoglobin 11.0 g/dL (12.0-15.5) L Hematocrit 32.2 % (36.0-47.0) L Mean Corpuscular Volume 97 fL (79-100) Mean Corpuscular Hemoglobin 33 pg (25-35) Mean Corpuscular Hemoglobin Concent 34 g/dL (31-37) Red Cell Distribution Width 16.8 % (11.5-14.5) H Platelet Count 249 x10^3/uL (140-400) Neutrophils (%) (Auto) 57 % (31-73) Lymphocytes (%) (Auto) 30 % (24-48) Monocytes (%) (Auto) 9 % (0-9) Eosinophils (%) (Auto) 2 % (0-3) Basophils (%) (Auto) 2 % (0-3) Neutrophils # (Auto) 3.8 x10^3/uL (1.8-7.7) Lymphocytes # (Auto) 2.0 x10^3/uL (1.0-4.8) Monocytes # (Auto) 0.6 x10^3/uL (0.0-1.1) Eosinophils # (Auto) 0.2 x10^3/uL (0.0-0.7) Basophils # (Auto) 0.1 x10^3/uL (0.0-0.2) D-Dimer ([place]) 6.06 ug/mlFEU (0.00-0.50) H Sodium Level 137 mmol/L (136-145) Potassium Level 4.9 mmol/L (3.5-5.1) Chloride Level 99 mmol/L (98-107) Carbon Dioxide Level 26 mmol/L (21-32) Anion Gap 12 (6-14) Blood Urea Nitrogen 33 mg/dL (7-20) H Creatinine 5.0 mg/dL (0.6-1.0) H Estimated GFR (Cockcroft-Gault) 8.6 BUN/Creatinine Ratio 7 (6-20) Glucose Level 184 mg/dL (70-99) H Lactic Acid Level 2.3 mmol/L (0.4-2.0) H Calcium Level 8.7 mg/dL (8.5-10.1) Phosphorus Level 6.6 mg/dL (2.6-4.7) H Magnesium Level 2.0 mg/dL (1.8-2.4) Total Bilirubin 0.4 mg/dL (0.2-1.0) Aspartate Amino Transferase (AST) 12 U/L (15-37) L Alanine Aminotransferase (ALT) 12 U/L (14-59) L Alkaline Phosphatase 51 U/L (46-116) Troponin I Quantitative < 0.017 ng/mL (0.000-0.055) RM-Lnv-B-Type Natriuretic Peptide > 75450 pg/mL (0-124) H Total Protein 7.8 g/dL (6.4-8.2) Albumin 3.0 g/dL (3.4-5.0) L Albumin/Globulin Ratio 0.6 (1.0-1.7) L Laboratory Tests 05/13/20 15:05 Laboratory Tests 05/13/20 15:05 Vital Signs: Vital Signs Date Time Temp Pulse Resp B/P (MAP) Pulse Ox O2 Delivery O2 Flow Rate FiO2 05/13/20 15:13 97.6 69 22 70/46 (54) 94 Room Air 97.6 EKG: EK:Sinus rhythm, right axis deviation, heart rate 64 bpm, no STEMI, no ectopy 1605: No change [] Heart Score: Risk Factors: Risk Factors: DM, Current or recent (<one month) smoker, HTN, HLP, family his tory of CAD, obesity. Risk Scores: Score 0 - 3: 2.5% MACE over next 6 weeks - Discharge Home Score 4 - 6: 20.3% MACE over next 6 weeks - Admit for Clinical Observation Score 7 - 10: 72.7% MACE over next 6 weeks - Early Invasive Strategies Radiology/Procedures: Radiology/Procedures: EXAM: CT ANGIOGRAM CHEST ABDOMEN AND PELVIS INDICATION: Hypotension, abdominal distention. Patient coded on the table. COMPARISON: None TECHNIQUE: Helical CT of the chest abdomen, and pelvis performed before and after the administration of 90 mL Omnipaque [address] of the chest was timed for angiographic evaluation of the pulmonary arteries per PE protocol. Coronal and sagittal 3D MIP reformations were obtained of the chest. Sagittal and coronal reformats were obtained of the abdomen and pelvis. One or more of the following individualized dose reduction techniques were utilized for this examination: 1. Automated exposure control 2. Adjustment of the mA and/or kV according to patient size 3. Use of iterative reconstruction technique. FINDINGS: Vasculature: The aorta is normal in caliber. No aortic aneurysm or rupture. There is severe calcified aortic atherosclerosis and noncontrast images. No evidence of intramural hematoma. There is no contrast in the left heart or aorta. Cannot evaluate for aortic dissection. CHEST: Pulmonary Arteries: There is no large central pulmonary embolism. Motion artifact limits evaluation beyond the level the proximal segmental pulmonary arteries. Heart/Systemic Vasculature: Heart is mildly enlarged. There is a small moderate pericardial effusion. Large amount of contrast refluxes into the inferior vena cava. Mediastinum and na: No lymphadenopathy. Lungs and pleura: There is mild interlobular septal thickening and groundglass opacities in the lungs. There are calcified pulmonary nodule in the right upper lobe. Nodular consolidative opacity measuring 1.5 cm along the posterior medial right lower lobe. There is airway wall thickening. Trace right pleural effusion. Neck/Axilla/Body Wall: Extensive collateral vessels are seen in the right upper extremity and chest wall. Bones: No acute osseous abnormality in the chest ABDOMEN AND PELVIS: Liver: Mild hepatomegaly. No focal liver lesion. Gallbladder/Biliary Tree: The gallbladder is not visualized. Pancreas: Normal. Spleen: No symmetrically. Adrenal Glands: Normal. Kidneys/Ureters/Bladder: Bilateral renal atrophy. No hydronephrosis. Ureters and bladder are unremarkable. Reproductive Organs: Unremarkable. Stomach, small bowel, and colon: Mild gaseous distention of the stomach. No small bowel obstruction. Colon is unremarkable. Vasculature: Severe calcified aortic atherosclerosis in arteriosclerosis of mesenteric vessels. Lymph Nodes: No lymphadenopathy. Peritoneum and retroperitoneum: Large volume of ascites. No retroperitoneal hemorrhage. No free air. Bones: No acute osseous abnormality. Severe degenerative disc disease at L3-L4. IMPRESSION: 1. No aortic aneurysm or rupture. Cannot evaluate for aortic dissection. Severe calcified aortic atherosclerosis. 2. Cardiomegaly with small to moderate pericardial effusion. Mild pulmonary edema. 3. Contrast is in the right heart and there is a large amount of contrast refluxing into the inferior vena cava and azygos vein. No contrast reached the left heart. This is consistent with patient coding during the exam. 4. No large central pulmonary embolism. 5. Large volume of ascites. 6. Extensive collateral vessels in the right upper extremity and chest wall may be due to chronic right upper extremity venous thrombosis. The patient is noted to be on dialysis. Correlate with altered right upper extremity vasculature related to dialysis access. [] Course & Med Decision Making: Course & Med Decision Making Patient hypotensive and hypotensive despite 3 L IVF, norepinephrine, dobutamine. Patient resting scanner due to concern for abdominal pathology secondary to abdominal distention and continued hypotension. Patient coded in the scanner, CPR was initiated patient was in PEA 4 rounds of epinephrine were given, 1 defibrillation was given secondary to V. tach on the monitor. Then 1 dose of sodium bicarb. Code was called at 1641 [] Dragon Disclaimer: Dragon Disclaimer: This electronic medical record was generated, in whole or in part, using a voice recognition dictation system. Departure Departure Impression: Primary Impression: Cardiopulmonary arrest Additional Impression: Acute decompensated heart failure Disposition: 20 Condition: Referrals: NO PCP (PCP) Critical Care Time Critical care time was 70 minutes exclusive of procedures. Problem Qualifiers PARVEEN TORRES MD May 13, 2020 15:04
[2020-05-13 15:14] LABS: BASO # 0.1 x10^3/uL (0.0-0.2); BASO % 2 % (0-3); EOS # 0.2 x10^3/uL (0.0-0.7); EOS % 2 % (0-3); HEMATOCRIT 32.2 % (36.0-47.0); LYMPH % 30 % (24-48); MEAN CORPUSCULAR HEMOGLOBIN 33 pg (25-35); MEAN CORPUSCULAR HGB CONC 34 g/dL (31-37); MEAN CORPUSCULAR VOLUME 97 fL (79-100); MONO # 0.6 x10^3/uL (0.0-1.1); MONO % 9 % (0-9); NEUT # 3.8 x10^3/uL (1.8-7.7); NEUT % 57 % (31-73); PLATELET COUNT 249 x10^3/uL (140-400); RED BLOOD COUNT 3.33 x10^6/uL (3.50-5.40); RED CELL DISTRIBUTION WIDTH 16.8 % (11.5-14.5); WHITE BLOOD COUNT 6.7 x10^3/uL (4.0-11.0)
[2020-05-13] MEDS ORDERED: IV NORMAL SALINE 1000ML BAG 1,000 ML IV ONE ×2 (15:15→15:45)
[2020-05-13 15:25] LABS: CALCIUM 8.7 mg/dL (8.5-10.1); GFR 8.6; POTASSIUM 4.9 mmol/L (3.5-5.1)
--- NOTE | 2020-05-13 15:29 | EKG ---
[facility] [address] [place] [address] Test Date: 2020-05-13 Test Time: 15:24:09 Pat Name: TJ HOOKS Department: Room: Gender: F Certified Medical Technician: : 1950 Requested By: PARVEEN TORRES Order Number: [id number] Reading MD: Measurements Intervals [place] Rate: 64 P: 0 MI: 146 QRS: 117 QRSD: 94 T: 0 QT: 456 QTc: 470 Interpretive Statements SINUS RHYTHM ABNORMAL RIGHT AXIS DEVIATION QRS(T) CONTOUR ABNORMALITY CONSIDER ANTEROSEPTAL MYOCARDIAL DAMAGE CONSISTENT WITH HIGH LATERAL INFARCT AGE UNDETERMINED ST & T ABNORMALITY, CONSIDER ANTERIOR ISCHEMIA OR LEFT VENTRICULAR STRAIN INFERIOR ISCHEMIA OR LEFT VENTRICULAR STRAIN ABNORMAL ECG RI6.01 No previous ECG available for comparison
[2020-05-13 15:30] LABS: ALBUMIN/GLOBULIN RATIO 0.6 (1.0-1.7); TOTAL BILIRUBIN 0.4 mg/dL (0.2-1.0); TOTAL PROTEIN 7.8 g/dL (6.4-8.2)
[2020-05-13] MEDS ORDERED: ONDANSETRON PF 4 MG/2 ML VIAL. IVP ONE (15:30)
--- NOTE | 2020-05-13 15:37 | RAD ---
EXAM: XR CHEST 1V INDICATION: Reason: hypotensive ER 1 / Spl. Instructions: / History: . TECHNIQUE: Single view COMPARISON: 03/08/2017 chest x-ray FINDINGS: Heart is enlarged. Great vessels show aortic calcification There is no hilar or mediastinal mass. Lungs are hypoventilatory. There is prominence of the pulmonary interstitial markings. There is a 1.1 cm nodular opacity in the superior right lung. This appears similar to the previous examination. There is no pleural effusion or pneumothorax. There are no significant osseous abnormalities. IMPRESSION: Hypoventilatory chest showing cardiomegaly and prominence of the pulmonary interstitial markings that could reflect pulmonary vascular congestion. Electronically signed by: Marina Mcadams MD (05/13/2020 3:34 PM) [id number]
[2020-05-13] MEDS ORDERED: EPINEPHrine VIAL 5 MG in IV NORMAL SALINE 250ML 250 ML IV PRN (15:45)
[2020-05-13] MEDS ORDERED: NOREPINEPHRINE VIAL 8 MG in IV DEXTROSE 5% 250 ML IV ONE (16:00)
[2020-05-13 16:09] VITALS: BP 70/43
[2020-05-13] MEDS ORDERED: CONTRAST GIVEN. MC PRN (16:15)
[2020-05-13] MEDS ORDERED: IOHEXOL 350 MG/ML 100 ML VIAL. IV ONE (16:15)
--- NOTE | 2020-05-13 17:16 | RAD ---
EXAM: CT ANGIOGRAM CHEST ABDOMEN AND PELVIS INDICATION: Hypotension, abdominal distention. Patient coded on the table. COMPARISON: None TECHNIQUE: Helical CT of the chest abdomen, and pelvis performed before and after the administration of 90 mL Omnipaque [address] of the chest was timed for angiographic evaluation o f the pulmonary arteries per PE protocol. Coronal and sagittal 3D MIP reformations were obtained of t he chest. Sagittal and coronal reformats were obtained of the abdomen and pelvis. One or more of the following individualized dose reduction techniques were utilized for this examinat ion: 1. Automated exposure control 2. Adjustment of the mA and/or kV according to patient size 3. Use of iterative reconstruction technique. FINDINGS: Vasculature: The aorta is normal in caliber. No aortic aneurysm or rupture. There is severe calcified aortic atherosclerosis and noncontrast images. No evidence of intramural hematoma. There is no contr ast in the left heart or aorta. Cannot evaluate for aortic dissection. CHEST: Pulmonary Arteries: There is no large central pulmonary embolism. Motion artifact limits evaluation b eyond the level the proximal segmental pulmonary arteries. Heart/Systemic Vasculature: Heart is mildly enlarged. There is a small moderate pericardial effusion. Large amount of contrast refluxes into the inferior vena cava. Mediastinum and na: No lymphadenopathy. Lungs and pleura: There is mild interlobular septal thickening and groundglass opacities in the lungs . There are calcified pulmonary nodule in the right upper lobe. Nodular consolidative opacity measuri ng 1.5 cm along the posterior medial right lower lobe. There is airway wall thickening. Trace right p leural effusion. Neck/Axilla/Body Wall: Extensive collateral vessels are seen in the right upper extremity and chest w all. Bones: No acute osseous abnormality in the chest ABDOMEN AND PELVIS: Liver: Mild hepatomegaly. No focal liver lesion. Gallbladder/Biliary Tree: The gallbladder is not visualized. Pancreas: Normal. Spleen: No symmetrically. Adrenal Glands: Normal. Kidneys/Ureters/Bladder: Bilateral renal atrophy. No hydronephrosis. Ureters and bladder are unremark able. Reproductive Organs: Unremarkable. Stomach, small bowel, and colon: Mild gaseous distention of the stomach. No small bowel obstruction. Colon is unremarkable. Vasculature: Severe calcified aortic atherosclerosis in arteriosclerosis of mesenteric vessels. Lymph Nodes: No lymphadenopathy. Peritoneum and retroperitoneum: Large volume of ascites. No retroperitoneal hemorrhage. No free air. Bones: No acute osseous abnormality. Severe degenerative disc disease at L3-L4. IMPRESSION: 1. No aortic aneurysm or rupture. Cannot evaluate for aortic dissection. Severe calcified aortic ath erosclerosis. 2. Cardiomegaly with small to moderate pericardial effusion. Mild pulmonary edema. 3. Contrast is in the right heart and there is a large amount of contrast refluxing into the inferio r vena cava and azygos vein. No contrast reached the left heart. This is consistent with patient snehal ng during the exam. 4. No large central pulmonary embolism. 5. Large volume of ascites. 6. Extensive collateral vessels in the right upper extremity and chest wall may be due to chronic rig ht upper extremity venous thrombosis. The patient is noted to be on dialysis. Correlate with altered right upper extremity vasculature related to dialysis access. Electronically signed by: Giuliana Salgado MD (05/13/2020 5:13 PM) [id number]
--- NOTE | 2020-05-13 17:47 | EKG ---
[facility] [address] [place] [address] Test Date: 2020-05-13 Test Time: 16:05:55 Pat Name: TJ HOOKS Department: Room: Gender: F Early Intervention Specialist: : 1950 Requested By: PARVEEN TORRES Order Number: [id number] Reading MD: Measurements Intervals [place] Rate: 75 P: 56 WI: 170 QRS: 119 QRSD: 88 T: 74 QT: 374 QTc: 420 Interpretive Statements SINUS RHYTHM ABNORMAL RIGHT AXIS DEVIATION QRS(T) CONTOUR ABNORMALITY CONSIDER ANTEROSEPTAL MYOCARDIAL DAMAGE CONSISTENT WITH HIGH LATERAL INFARCT PROBABLY OLD ABNORMAL ECG RI6.01 Compared to ECG 05/13/2020 15:54:08 Right-axis deviation now present Myocardial infarct finding now present Left-axis deviation no longer present
== END 2020-05-13 18:35 ==
LOC: ER 14:53
DX: I46.9 Cardiac arrest, cause unspecified (principal); I50.9 Heart failure, unspecified; R42 Dizziness and giddiness; H53.8 Other visual disturbances; J44.9 Chronic obstructive pulmonary disease, unspecified; E11.9 Type 2 diabetes mellitus without complications; E78.00 Pure hypercholesterolemia, unspecified; I10 Essential (primary) hypertension; N19 Unspecified kidney failure; Z90.49 Acquired absence of other specified parts of digestive tract; Z98.890 Other specified postprocedural states; Z98.51 Tubal ligation status
CPT/HCPCS: 36415; 71045; 71275; 74174; 80053; 83605; 83735; 83880; 84100; 84484; 85025; 85379; 92950; 93005; 96361; 96365; 96368; 96375; 99291; J0171; J1250; J2405; J3490; J7030; J7060; Q9967